=== PATIENT | female | born 1955 | race American Indian/Alaskan Native ===

== ENCOUNTER 2016-09-17 10:25 | Emergency (ER) | payer OTHER ==
[2016-09-17 11:08] VITALS: TEMP 98.2; O2SAT 99
[2016-09-17 11:10] VITALS: BMI 36.6
--- NOTE | 2016-09-17 11:44 | ED PDOC ---
Arrival/HPI - General Chief Complaint: Upper Extremity Problem/Injury Time Seen by Provider: 09/17/16 11:31 Historian: Patient - History of Present Illness Narrative History of Present Illness (Text): 09/17/16 11:41 61 year old female whose past medical history includes hypertension, rheumatoid arthritis, on Tramadol, presents to the emergency department with stiffness on the left side of the neck starting 1 week ago which improved, however progressed to left shoulder pain for the past 3 days. She states it is very painful and stiff and it hurst a lot to move. Denies injury. Patient reports some chest discomfort and difficulty breathing but only when moving the shoulder. No fever, nausea, vomiting, abdominal pain, sore throat, cough, shortness of breath, urinary/bowel changes, back pain, new rashes, headache, vision changes or other associated symptoms. Time/Duration: < week Symptom Onset: Gradual Symptom Course: Worsening Modifying Factors (Text): None Associated Symptoms (Text): Chest discomfort and difficulty breathing when moving left shoulder Past Medical History - Provider Review Nursing Documentation Reviewed: Yes - Cardiac Hx Hypertension: Yes - Pulmonary Hx Asthma: Yes - Gastrointestinal Hx Gastroesophageal Reflux: Yes - Psychiatric Hx Substance Use: No Family/Social History - Physician Review Nursing Documentation Reviewed: Yes Family/Social History: Unknown Family HX Smoking Status: Unknown If Ever Smoked Hx Alcohol Use: No Hx Substance Use: No Allergies/Home Meds Allergies/Adverse Reactions: Allergies Penicillins Allergy (Verified 09/17/16 11:27) ANAPHYLAXIS Review of Systems - Physician Review All systems were reviewed & negative as marked: Yes - Review of Systems Constitutional: absent: Fevers Eyes: absent: Vision Changes ENT: absent: Hearing Changes Respiratory: absent: Cough Gastrointestinal: absent: Abdominal Pain, Stool Changes, Nausea, Vomiting Genitourinary Female: absent: Dysuria, Hematuria, Urine Output Changes Musculoskeletal: Other (Left shoulder pain with associated chest discomfort and difficulty breathing; Left neck stiffness which is improving) Skin: absent: Rash Neurological: absent: Headache Physical Exam Vital Signs Reviewed: Yes Vital Signs Temp Pulse Resp BP Pulse Ox 09/17/16 15:29 70 16 131/61 99 09/17/16 12:06 79 18 145/69 99 09/17/16 11:07 98.2 F 86 18 148/71 99 Temperature: Afebrile Blood Pressure: Normal Pulse: Regular Respiratory Rate: Normal Appearance: Positive for: Well-Appearing, Non-Toxic, Comfortable Pain Distress: None Mental Status: Positive for: Alert and Oriented X 3 - Systems Exam Head: Present: Atraumatic, Normocephalic Pupils: Present: PERRL Conjunctiva: Present: Normal Mouth: Present: Moist Mucous Membranes Pharnyx: Present: Normal. No: ERYTHEMA Respiratory/Chest: Present: Clear to Auscultation, Good Air Exchange. No: Respiratory Distress, Accessory Muscle Use Cardiovascular: Present: Regular Rate and Rhythm, Normal S1, S2. No: Murmurs Abdomen: Present: Normal Bowel Sounds. No: Tenderness, Distention, Peritoneal Signs Upper Extremity: Present: Other (Left shoulder: Tenderness to palpation, mildly swollen, mildly warm. No erythema. Limited active movement of shoulder. Able to passively abduct left shoulder to 50 degrees.) Neurological: Present: GCS=15, CN II-XII Intact, Speech Normal Skin: Present: Warm, Dry, Normal Color. No: Rashes Psychiatric: Present: Alert, Oriented x 3, Normal Insight, Normal Concentration Medical Decision Making ED Course and Treatment: Impression: 61 year old female whose past medical history includes hypertension , rheumatoid arthritis, on Tramadol, presents to the emergency department with stiffness on the left side of the neck starting 1 week ago which improved, however progressed to left shoulder pain for the past 3 days. Differential Diagnosis include but are not limited to: Shoulder sprain vs tendonitis vs bursitis vs gout vs RA exacerbation vs septic joint Plan: -- XR left shoulder, MRI left shoulder, Chest X-ray, EKG -- Toradol -- Labs -- Reassess and disposition Progress Notes: 09/17/16 15:50 MRI Results: FINDINGS: TENDONS: Supraspinatus: In the distal supraspinatus tendon, there is moderate tendinosis and a partial thickness tear, which extends to the articular surface, but not the bursal surface (series 8 image 10). It is 10 mm in length. Infraspinatus: Amorphous calcification superficial to the distal infraspinatus tendon, 9 x 3 x 4 mm, confirms calcific tendinosis. There is no tear. Subscapularis: Mild tendinosis without tear. Teres minor: Normal. Biceps brachii, long head: Normal. LIGAMENTS: Glenohumeral: Normal. Muscles: Normal. Fluid: T2 hyperintensity in the subacromial/subdeltoid bursa is consistent with bursitis secondary to the calcific tendinosis. No glenohumeral joint effusion. Cartilage: Normal. Glenoid labrum: Normal. No tear. Bones/joints: Normal left acromioclavicular joint. Normal left glenohumeral joint. Soft tissues: There is susceptibility artifact in the soft tissues anterior and superior to the distal left clavicle. It may be due to a metal snap in the patient's gown. IMPRESSION: In the distal supraspinatus tendon, there is moderate tendinosis. A partial- thickness tear extends to the articular surface, but not the bursal surface ( series 8 image 10). Infraspinatus calcific tendinosis. Subacromial/subdeltoid bursitis. 09/17/16 16:02 Patient given toradol with mild improvement of pain and morphine with more improvement. Passive ranging is about 90 degress now. Patient's labs show no leukocytosis or neutrophilia. Sed Rate is minimally elevated at 37 (age and gender adjusted normal ESR for patient is 35). MRI of the L shoulder was done showing bursitis and significant tendinosis but no evidence of osteo or findings reflective of septic joint, such as joint effusion, synovial enhancement, bone marrow edema, or cartilage loss; the ac and glenohumeral joints are normal on MRI. Patient has a history of RA but is not on any DMDs or steroids and is not immunosupressed. Given findings, it is highly unlikely that the patient has a septic joint and reports she may follow up with her pmd in two days and told she needs to f/u her display designer outside and orthopedic. Will d /c on medrol dose ghassan, have her continue naprosyn, and give 3 day course of percocet as she has failed tramadol therapy. - Lab Interpretations Lab Results: 09/17/16 11:55 09/17/16 11:55 Lab Results 09/17/16 11:58: Urine Color Yellow, Urine Appearance Sl cloudy, Urine pH 6.0, Ur Specific [place] >= 1.030, Urine Protein 30 H, Urine Glucose (UA) Negative, Urine Ketones Negative, Urine Blood Negative, Urine Nitrate Negative, Urine Bilirubin Small H, Urine Urobilinogen 1.0 H, Ur Leukocyte Esterase Negative, Urine RBC Negative, Urine WBC Negative, Ur Epithelial Cells 3 - 4, Urine Bacteria Small, Urine Other Mucus 09/17/16 11:55: Sodium 136, Chloride 99, Potassium 4.3, Carbon Dioxide 30, Anion Gap 11, BUN 12, Creatinine 0.7, Est GFR ( Amer) > 60, Est GFR (Non- Af Amer) > 60, Random Glucose 94, Uric Acid 4.1, Calcium 9.5, Total Bilirubin 1.0, AST 35, ALT 27, Alkaline Phosphatase 89, Lactate Dehydrogenase 562, Total Creatine Kinase 58, Troponin I < 0.01, NT-Pro-B Natriuret Pep 132, Total Protein 9.0 H, Albumin 4.4, Globulin 4.6, Albumin/Globulin Ratio 1.0 L, Lipase 34 09/17/16 11:55: pO2 34, VBG pH 7.34, VBG pCO2 55.0, VBG HCO3 29.7 H, VBG Total CO2 31.4 H, VBG O2 Sat (Calc) 65.2 H, VBG Base Excess 2.8 H, VBG Potassium 3.8, Sodium 137.0, Chloride 105.0, Glucose 94, Lactate 0.9, FiO2 21.0, Venous Blood Potassium 3.8 09/17/16 11:55: PT 11.5, INR 1.06, APTT 26.4 09/17/16 11:55: WBC 9.1, RBC 4.32, Hgb 11.6 L, Hct 35.3 L, MCV 81.7, MCH 26.9, MCHC 32.9, RDW 14.0, Plt Count 297, MPV 11.1 H, Gran % 66.0, Lymph % (Auto) 23.6 , [place] % (Auto) 9.3 H, Eos % (Auto) 0.8 L, Baso % (Auto) 0.3, Gran # 5.98, Lymph # 2.1, [place] # 0.8 H, Eos # 0.1, Baso # 0.03, ESR 37 H - RAD Interpretation Narrative RAD Interpretations (Text): PROCEDURE: Radiographs of the Left Shoulder Proof Machine Operator Supervisor : Onofre Meredith MD FINDINGS: BONES: No fracture or dislocation. JOINTS: Mild degenerative changes involve the glenohumeral and acromioclavicular joints. SOFT TISSUES: Osseous/calcific density along the lateral aspect of the left humeral head could be from calcific tendinosis. OTHER FINDINGS: None. IMPRESSION: Mild degenerative changes. No fracture or dislocation. MRI can be obtained if symptoms persist. Radiology Orders: 09/17/16 11:39 SHOULDER LEFT [RAD] Stat 09/17/16 11:41 CHEST TWO VIEWS (PA/LAT) [RAD] Stat 09/17/16 11:46 SHOULDER W/O CONTRAST LT [MRI] Stat Fertilizer Mixer: Radiologist - EKG Interpretation EKG Interpretation (Text): 09/17/16 13:42 EKG shows NSR at [address]/t changes, poor r wave progression, borderline left axis deviation Interpreted by ED Physician: Yes Type: 12 lead EKG - Medication Orders Current Medication Orders: Discontinued Medications Ketorolac Tromethamine (Toradol) 30 mg IVP STAT STA Stop: 09/17/16 11:45 Last Admin: 09/17/16 11:52 Dose: 30 mg Morphine Sulfate (Morphine) 4 mg IVP STAT STA Stop: 09/17/16 15:36 Last Admin: 09/17/16 15:43 Dose: 4 mg - Scribe Statement The provider has reviewed the documentation as recorded by the Suzy Junior Provider Scribe Attestation: All medical record entries made by the Suzy were at my direction and personally dictated by me. I have reviewed the chart and agree that the record accurately reflects my personal performance of the history, physical exam, medical decision making, and the department course for this patient. I have also personally directed, reviewed, and agree with the discharge instructions and disposition. Disposition/Present on Arrival - Present on Arrival Any Indicators Present on Arrival: No History of DVT/PE: No History of Uncontrolled Diabetes: No Urinary Catheter: No History of Decub. Ulcer: No History Surgical Site Infection Following: None - Disposition Have Diagnosis and Disposition been Completed?: Yes Diagnosis: Subacromial bursitis of left shoulder joint, Supraspinatus tendinitis, Infraspinatus tendonitis, Supraspinatus tendon tear Disposition: HOME/ ROUTINE Disposition Time: 16:55 Patient Plan: Discharge Condition: GOOD Discharge Instructions (ExitCare): Rotator Cuff Tendinitis (ED), Shoulder Bursitis (ED) Additional Instructions: Take the medications as prescribed. Stop using tramadol while taking percocet. Follow up with your primary care doctor, display designer outside, and orthopedics. Return to the emergency department if any new concerning symptoms. Prescriptions: Methylprednisolone [Medrol Dose Pack (21 tabs)] 4 mg PO DAILY #21 mg Naproxen [Naprosyn] 500 mg PO BID PRN #30 tab PRN Reason: Pain oxyCODONE/Acetaminophen [Percocet 5/325 mg Tab] 1 tab PO Q6H PRN #12 tab PRN Reason: Pain, Severe (8-10) Referrals: Aron Niño MD [Primary Care Provider] - Follow up with primary [facility] [Outside] - Follow up with primary [facility] [Outside] - Follow up with primary Dewayne He MD [Staff Provider] - Follow up with primary
[2016-09-17 12:04] LABS: URINE BILIRUBIN SMALL (NEGATIVE); URINE BLOOD NEGATIVE (NEGATIVE); URINE GLUCOSE (UA) NEGATIVE (NEGATIVE); URINE KETONE NEGATIVE (NEGATIVE); URINE LEUKOCYTE ESTERASE NEGATIVE Leu/uL (NEGATIVE); URINE PROTEIN 30 mg/dL (<30 mg/dL)
[2016-09-17 12:08] LABS: URINE APPEARANCE SL CLOUDY (CLEAR); URINE COLOR YELLOW (YELLOW)
[2016-09-17 12:09] LABS: URINE BACTERIA SMALL (NEG); URINE RBC NEGATIVE /hpf (0-2); URINE WBC NEGATIVE /hpf (0-6)
[2016-09-17 12:27] LABS: ADD MANUAL DIFF? NO
[2016-09-17 12:32] LABS: VENOUS BLOOD GAS BASE EXCESS 2.8 mmol/L (0.0-2.0); VENOUS BLOOD PH 7.34 (7.32-7.43)
[2016-09-17 12:35] LABS: BASO # 0.03 K/mm3 (0.0-2.0); BASO % 0.3 % (0.0-3.0); EOS # 0.1 (0.0-0.7); EOS % 0.8 % (1.5-5.0); GRAN # 5.98 (1.4-6.5); HEMATOCRIT 35.3 % (36.0-48.0); LYMPH # 2.1 (1.2-3.4); LYMPH % 23.6 % (22.0-35.0); MEAN CELL VOLUME 81.7 fL (80.0-105.0); MEAN CORPUSCULAR HEMOGLOBIN 26.9 pg (25.0-35.0); MEAN CORPUSCULAR HGB CONC 32.9 g/dl (31.0-37.0); MEAN PLATELET VOLUME 11.1 fl (7.0-11.0); MONO # 0.8 (0.1-0.6); MONO % 9.3 % (1.0-6.0); PLATELET COUNT 297 10^3/uL (120.0-450.0); WHITE BLOOD COUNT 9.1 10^3/ul (4.5-11.0)
[2016-09-17 12:40] LABS: ALKALINE PHOSPHATASE 89 U/L (38-133); ALT/SGPT 27 U/L (7-56); AST/SGOT 35 U/L (15-39); BLOOD UREA NITROGEN 12 mg/dL (7-21); CALCIUM 9.5 mg/dL (8.4-10.5); CARBON DIOXIDE 30 mmol/L (21-33); CHLORIDE 99 mmol/L (98-107); GFR AFRICAN-AMERICAN > 60; GLUCOSE,RANDOM 94 mg/dL (70-110); LIPASE 34 U/L (23-300); POTASSIUM 4.3 mmol/L (3.6-5.0); SODIUM 136 mmol/L (132-148); URIC ACID 4.1 mg/dL (2.5-6.2)
[2016-09-17 12:41] LABS: INR 1.06 (0.93-1.08); PARTIAL THROMBOPLASTIN TIME 26.4 Seconds (23.7-30.8)
[2016-09-17 12:53] LABS: TROPONIN I < 0.01 ng/mL
--- NOTE | 2016-09-17 13:09 | RAD ---
PROCEDURE: Radiographs of the Left Shoulder HISTORY: L shoulder pain COMPARISON: No prior. FINDINGS: BONES: No fracture or dislocation. JOINTS: Mild degenerative changes involve the glenohumeral and acromioclavicular joints. SOFT TISSUES: Osseous/calcific density along the lateral aspect of the left humeral head could be from calcific tendinosis. OTHER FINDINGS: None. IMPRESSION: Mild degenerative changes. No fracture or dislocation. MRI can be obtained if symptoms persist.
--- NOTE | 2016-09-17 13:13 | RAD ---
HISTORY: L chest pain, shoulder pain COMPARISON: No prior. TECHNIQUE: Chest PA and lateral FINDINGS: LUNGS: No active pulmonary disease. PLEURA: No significant pleural effusion identified. No pneumothorax apparent.Biapical pleural parenchymal thickening noted. CARDIOVASCULAR: Normal. OSSEOUS STRUCTURES: No significant abnormalities. VISUALIZED UPPER ABDOMEN: Normal. OTHER FINDINGS: None. IMPRESSION: No active disease. Followup imaging should be obtained as per clinical scenario.
[2016-09-17 13:40] LABS: ERYTHROCYTE SEDIMENTATION RATE 37 mm/hr (0.0-20.0)
[2016-09-17 15:30] VITALS: RESP 16
[2016-09-17] MEDS ORDERED: Morphine 4 mg/ml ISec IVP STA (15:35)
[2016-09-17 17:02] VITALS: BP 132/65; PULSE 69
--- NOTE | 2016-09-18 10:23 | CARD ---
APPROVED REPORT EKG Measurement Heart [id number] <Conclusion> Normal sinus rhythm PRWP V 1 - 6, possible lead positioning
--- NOTE | 2016-09-18 13:29 | MRI ---
MRI left shoulder History: Shoulder pain. Evaluate for effusion and or septic joint. Comparison: None available. Technique: Multi-echo multiplanar sequences were performed through the left shoulder without the use of intravenous contrast. Findings: Complete full-thickness tear of the distal supraspinatus tendon at its far anterior insertion on the greater tuberosity with tendon retraction measuring 4 millimeters. Associated moderate tendinopathy. Mild fatty atrophy of the muscle belly. Prominent calcific tendinopathy of the distal infraspinatus tendon with ovoid low signal density measuring 9 millimeters seen at the distal attachment of the infraspinatus tendon. Associated moderate to severe tendinopathy with interstitial delamination. No gross tendon retraction or muscle atrophy. Teres minor tendon is preserved. Moderate distal subscapularis tendinopathy with articular surface fraying and interstitial delamination. No gross tendon retraction or muscle atrophy. Proximal portion of the long head of the biceps tendon is maintained within its normal position in the bicipital groove. Evaluation of the glenoid labrum demonstrates degenerative fraying of the superior labrum extending from its mid to posterior aspect. Additional diminutive appearance of the anterior glenoid labrum. Thickened inferior glenohumeral ligament which may represent an underlying adhesive capsulitis. Few focal subchondral cysts within the proximal humerus; for example, measuring up to 2 millimeters. No significant glenohumeral joint effusion. Moderate amount of fluid within the subacromial and subdeltoid bursa. Increased STIR signal seen within the distal clavicle which may represent failure of fat suppression. Moderate acromioclavicular joint space degenerative changes with joint space narrowing, subchondral edema, and bony hypertrophy. If there is persistent concern for septic arthritis, correlation with joint aspiration and culture sample/biopsy may be helpful. Impression: 1. Complete full-thickness tear of the distal supraspinatus tendon at its far anterior insertion on the greater tuberosity with tendon retraction measuring 4 millimeters. Associated moderate tendinopathy. Mild fatty atrophy of the muscle belly. 2. Prominent calcific tendinopathy of the distal infraspinatus tendon with ovoid low signal density measuring 9 millimeters seen at the distal attachment of the infraspinatus tendon. Associated moderate to severe tendinopathy with interstitial delamination. No gross tendon retraction or muscle atrophy. 3. Moderate distal subscapularis tendinopathy with articular surface fraying and interstitial delamination. No gross tendon retraction or muscle atrophy. 4. Evaluation of the glenoid labrum demonstrates degenerative fraying of the superior labrum extending from its mid to posterior aspect. Additional diminutive appearance of the anterior glenoid labrum. 5. Thickened inferior glenohumeral ligament which may represent an underlying adhesive capsulitis. 6. Few focal subchondral cysts within the proximal humerus; for example, measuring up to 2 millimeters. 7. Moderate amount of fluid within the subacromial and subdeltoid bursa. 8. Increased STIR signal seen within the distal clavicle which may represent failure of fat suppression. 9. Moderate acromioclavicular joint space degenerative changes with joint space narrowing, subchondral edema, and bony hypertrophy. 10. If there is persistent concern for septic arthritis, correlation with joint aspiration and culture sample/biopsy may be helpful.
== END 2016-09-17 17:19 | disposition home or self-care (01) ==
LOC: ED 10:25
DX: M75.52 Bursitis of left shoulder (principal); S46.812A Strain of other muscles, fascia and tendons at shoulder and upper arm level, left arm, initial encounter; X58.XXXA Exposure to other specified factors, initial encounter; I10 Essential (primary) hypertension; M06.9 Rheumatoid arthritis, unspecified
CPT/HCPCS: 71020; 73030; 73221; 80053; 81001; 82550; 82803; 83615; 83690; 83880; 84484; 84550; 85025; 85610; 85651; 85730; 86140; 93005; 96374; 96375; 99285; J1885; J2270; J2930

== ENCOUNTER 2017-03-22 05:43 | Inpatient (IN) | payer OTHER ==
[2017-03-22] MEDS ORDERED: Eptifibatide 0.75 mg/ml 150 MG/200 ML BOTTLE IV ONE (05:51)
[2017-03-22] MEDS ORDERED: Metoprolol 1 mg/ml Inj IVP ONE ×2 (05:51→07:13)
[2017-03-22] MEDS ORDERED: Eptifibatide 20 mg/10mL Inj IVP ONE ×2 (05:51→06:00)
[2017-03-22] MEDS ORDERED: Heparin 25,000units in D5W 25,000 UNITS/250 ML BAG IV ONE (05:52)
[2017-03-22] MEDS ORDERED: Nitroglycerin 50mg in D5W 50 MG/250 ML BOTTLE IV PRN (05:54)
--- NOTE | 2017-03-22 05:54 | ED PDOC ---
Arrival/HPI - General Time Seen by Provider: 03/22/17 05:47 Historian: Patient, EMS - History of Present Illness Narrative History of Present Illness (Text): 03/22/17 05:53 A 61 year old female, whose past medical history includes rheumatoid arthritis and hypertension, was brought in by Paramedics to the emergency department for onset of chest pain that developed around midnight. Patient denies any shortness of breath. Patient's family summoned ambulance when patient's pain persisted and increased in severity.Rhythm strip showed possible acute inferior wall injury. Patient was administered Aspirin prior to arrival to the emergency department. Patient is currently still with chest pain. PMD: Dr. Niño Time/Duration: 4-6 hours Symptom Onset: Sudden Symptom Course: Unchanged Activities at Onset: Rest Context: Home Past Medical History - Provider Review Nursing Documentation Reviewed: Yes - Cardiac Hx Hypertension: Yes - Pulmonary Hx Asthma: Yes - Gastrointestinal Hx Gastroesophageal Reflux: Yes - Psychiatric Hx Substance Use: No Family/Social History - Physician Review Nursing Documentation Reviewed: Yes Family/Social History: No Known Family HX Smoking Status: Unknown If Ever Smoked Hx Alcohol Use: No Hx Substance Use: No Allergies/Home Meds Allergies/Adverse Reactions: Allergies Penicillins Allergy (Verified 03/22/17 05:56) ANAPHYLAXIS Home Medications: Home Meds Medication Instructions Recorded Confirmed Loratadine [Claritin] 10 mg PO PRN PRN 03/22/17 03/22/17 traMADol [Ultram] 50 mg PO TID 03/22/17 03/22/17 Review of Systems - Physician Review All systems were reviewed & negative as marked: Yes - Review of Systems Respiratory: absent: SOB Cardiovascular: Chest Pain Physical Exam Vital Signs Reviewed: Yes Vital Signs Temp Pulse Resp BP Pulse Ox 03/22/17 06:07 61 18 120/62 98 03/22/17 06:01 65 144/65 03/22/17 05:49 98.7 F 66 18 143/74 100 Temperature: Afebrile Blood Pressure: Normal Pulse: Regular Respiratory Rate: Normal Mental Status: Positive for: Alert and Oriented X 3 - Systems Exam Head: Present: Atraumatic, Normocephalic Pupils: Present: PERRL Extroacular Muscles: Present: EOMI Conjunctiva: Present: Normal Mouth: Present: Moist Mucous Membranes Neck: Present: Normal Range of Motion Respiratory/Chest: Present: Clear to Auscultation, Good Air Exchange. No: Respiratory Distress, Accessory Muscle Use Cardiovascular: Present: Regular Rate and Rhythm, Normal S1, S2. No: Murmurs Abdomen: Present: Normal Bowel Sounds. No: Tenderness, Distention, Peritoneal Signs Back: Present: Normal Inspection Upper Extremity: Present: Normal Inspection. No: Cyanosis, Edema Lower Extremity: Present: Normal Inspection. No: Edema Neurological: Present: GCS=15, CN II-XII Intact, Speech Normal Skin: Present: Warm, Dry, Normal Color. No: Rashes Psychiatric: Present: Alert, Oriented x 3, Normal Insight, Normal Concentration Medical Decision Making ED Course and Treatment: 03/22/17 05:52 Impression: A 61 year old female with chest pain. Plan: -- EKG -- chest xray -- labs -- Heparin, Plavix, Nitroglycerin, Morphine -- Reassess and disposition Prior Visits: Notes and results from previous visits were reviewed. Patient was last seen in the emergency department on 09/17/16 for evaluation of left sided neck stiffness and left shoulder pain. Progress Notes: 03/22/17 05:48 Code heart called. 03/22/17 05:49 EKG: Ordered, reviewed, and independently interpreted the EKG. Rate : 65 BPM Rhythm : NSR Interpretation : acute infero-lateral injury with reciprocal changes anteriorly 03/22/17 05:[address] Schilling, Plastics Repairer.Medical management discussed in full.Pt. prepped for cardiac catheterization. 03/22/17 06:08 Chest xray: No acute process, as read by me. 03/22/17 06:20 Case was discussed with the medical psychotherapist/house physician/ and delivery man.Pt. to be admitted to the hospitalist service. in ED to evaluate pt.to be transported to laboratory geneticist. - Lab Interpretations Lab Results: 03/22/17 05:50 03/22/17 05:50 Lab Results 03/22/17 05:50: PT 11.5, INR 1.04, APTT 26.9 03/22/17 05:50: WBC 10.4, RBC 4.54, Hgb 12.0, Hct 37.1, MCV 81.7, MCH 26.4, MCHC 32.3, RDW 14.4, Plt Count 285, MPV 10.6 03/22/17 05:50: Sodium 141, Potassium 4.0, Chloride 100, Carbon Dioxide 30, Anion Gap 15, BUN 24 H, Creatinine 0.8, Est GFR ( Amer) > 60, Est GFR ( Non-Af Amer) > 60, Random Glucose 136 H, Calcium 10.3, Total Bilirubin 0.6, AST 34, ALT 29, Alkaline Phosphatase 96, Lactate Dehydrogenase 417, Total Creatine Kinase 62, Troponin I 0.23 H* D, Total Protein 9.2 H, Albumin 4.6, Globulin 4.5 , Albumin/Globulin Ratio 1.0 L, Triglycerides 108, Cholesterol 266 H, LDL Cholesterol Direct 164 H, HDL Cholesterol 49 - RAD Interpretation Radiology Orders: 03/22/17 05:53 CHEST PORTABLE [RAD] Stat - EKG Interpretation Interpreted by ED Physician: Yes Type: 12 lead EKG - Medication Orders Current Medication Orders: Nitroglycerin/Dextrose (Nitroglycerin 50 Mg/250 Ml D5w) 50 mg in 250 mls @ 3 mls/hr IV .Q24H PRN; Protocol; 10 MCG/MIN PRN Reason: Pain, severe (8-10) Last Admin: 03/22/17 06:01 Dose: 3 mls/hr eMAR Start Stop Document 03/22/17 06:01 BOB (Rec: 03/22/17 06:25 BOB [id number]) Intravenous Solution Start Date 03/22/17 Start Time 06:01 JUL Pulse and Blood Pressure Document 03/22/17 06:01 BOB (Rec: 03/22/17 06:25 BOB [id number]) Pulse Pulse Rate (60-90) 65 Blood Pressure Blood Pressure (100/60-150/90) 144/65 Discontinued Medications Clopidogrel Bisulfate (Plavix) 600 mg PO STAT STA Stop: 03/22/17 05:55 Last Admin: 03/22/17 05:55 Dose: 600 mg Eptifibatide (Integrilin Bolus) 17 mg IVP STAT STA Stop: 03/22/17 06:06 Heparin Sodium (Porcine) (Heparin) 5,000 units IVP STAT STA PRN Reason: Protocol Stop: 03/22/17 05:55 Last Admin: 03/22/17 05:55 Dose: 5,000 units IVP Administration Document 03/22/17 05:55 BOB (Rec: 03/22/17 06:26 BOB [id number]) Charges for Administration # of IVP Administrations 1 Morphine Sulfate (Morphine) 2 mg IVP STAT STA Stop: 03/22/17 06:09 Last Admin: 03/22/17 06:13 Dose: 2 mg MAR Pain Assessment Document 03/22/17 06:13 BOB (Rec: 03/22/17 06:18 BOB [id number]) Pain Reassessment Is this a pain reassessment? No IVP Administration Document 03/22/17 06:13 BOB (Rec: 03/22/17 06:18 BOB [id number]) Charges for Administration # of IVP Administrations 1 - Scribe Statement The provider has reviewed the documentation as recorded by the Yanethibrustam Malloy Provider Scribe Attestation: All medical record entries made by the Scribe were at my direction and personally dictated by me. I have reviewed the chart and agree that the record accurately reflects my personal performance of the history, physical exam, medical decision making, and the department course for this patient. I have also personally directed, reviewed, and agree with the discharge instructions and disposition. Disposition/Present on Arrival - Present on Arrival Any Indicators Present on Arrival: No History of DVT/PE: No History of Uncontrolled Diabetes: No Urinary Catheter: No History of Decub. Ulcer: No History Surgical Site Infection Following: None - Disposition Have Diagnosis and Disposition been Completed?: Yes Diagnosis: STEMI (ST elevation myocardial infarction) Disposition: HOSPITALIZED Disposition Time: 06:23 Patient Plan: Admission Patient Problems: Current Active Problems Problem Status Onset STEMI (ST elevation myocardial infarction) Acute Condition: GUARDED
[2017-03-22] MEDS: Nitroglycerin 50mg in D5W 50 MG/250 ML BOTTLE IV ONE ×2 (06:01→06:27)
[2017-03-22] MEDS: Eptifibatide 20 mg/10mL Inj IVP STA ×2 (06:05→06:10)
[2017-03-22 06:07] LABS: HEMATOCRIT 37.1 % (36.0-48.0); MEAN CELL VOLUME 81.7 fl (80.0-105.0); MEAN CORPUSCULAR HEMOGLOBIN 26.4 pg (25.0-35.0); MEAN CORPUSCULAR HGB CONC 32.3 g/dl (31.0-37.0); MEAN PLATELET VOLUME 10.6 fl (7.0-11.0); RED CELL DISTRIBUTION WIDTH 14.4 % (11.5-14.5); WHITE BLOOD COUNT 10.4 10^3/ul (4.5-11.0)
[2017-03-22] MEDS ORDERED: Morphine 2 mg/ml ISec IVP STA (06:08)
[2017-03-22] MEDS ORDERED: Morphine 2 mg/ml ISec ONE (06:12)
[2017-03-22 06:15] LABS: ALKALINE PHOSPHATASE 96 U/L (38-126); ALT/SGPT 29 U/L (7-56); AST/SGOT 34 U/L (14-36); BILIRUBIN,TOTAL 0.6 mg/dL (0.2-1.3); BLOOD UREA NITROGEN 24 mg/dL (7-21); CALCIUM 10.3 mg/dL (8.4-10.5); CARBON DIOXIDE 30 mmol/L (21-33); CHLORIDE 100 mmol/L (98-107); CHOLESTEROL 266 mg/dL (130-200); GFR AFRICAN-AMERICAN > 60; GLUCOSE,RANDOM 136 mg/dL (70-110); SODIUM 141 mmol/L (132-148); TOTAL PROTEIN 9.2 g/dL (5.8-8.3)
[2017-03-22 06:18] LABS: INR 1.04 (0.93-1.08); PARTIAL THROMBOPLASTIN TIME 26.9 Seconds (25.1-36.5)
[2017-03-22] MEDS ORDERED: Midazolam 2 MG/2 ML VIAL ONE (06:27)
[2017-03-22] MEDS ORDERED: Iodixanol 320 MG/ML 200 ML BOTTLE IV ONE (06:32)
[2017-03-22] MEDS ORDERED: Iohexol 350mgl/ml 50 ML ONE (06:32)
[2017-03-22] MEDS ORDERED: Iodixanol 320 mg/ml 150 ml Bottle IV ONE (06:32)
[2017-03-22] MEDS ORDERED: Lidocaine 2% Inj (20ml) ONE (06:34)
--- NOTE | 2017-03-22 06:39 | CP.PCM.PN ---
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 Objective - Vital Signs/Intake and Output Vital Signs (last 24 hours): Temp Pulse Resp BP Pulse Ox 98.7 F 61 18 120/62 98 03/22/17 05:49 03/22/17 06:07 03/22/17 06:07 03/22/17 06:07 03/22/17 06:07 - Medications Medications: Current Medications Nitroglycerin/Dextrose (Nitroglycerin 50 Mg/250 Ml D5w) 50 mg in 250 mls @ 3 mls/hr IV .Q24H PRN; Protocol; 10 MCG/MIN PRN Reason: Pain, severe (8-10) Last Admin: 03/22/17 06:01 Dose: 3 mls/hr - Labs Labs: 03/22/17 05:50 03/22/17 05:50 PT 11.5 SECONDS (9.4-12.5) 03/22/17 05:50 INR 1.04 (0.93-1.08) 03/22/17 05:50 APTT 26.9 Seconds (25.1-36.5) 03/22/17 05:50
[2017-03-22 06:40] LABS: TROPONIN I 0.23 ng/mL
[2017-03-22] MEDS ORDERED: Phenylephrine 10 mg/ml Inj ONE (06:55)
[2017-03-22] MEDS ORDERED: Sodium Chloride 0.9% 1,000 ML IV SCH (07:30)
[2017-03-22] MEDS ORDERED: Eptifibatide 0.75 mg/ml 100 ML IV SCH (07:30)
[2017-03-22] MEDS: Eptifibatide 0.75 mg/ml 75 MG/100 ML BOTTLE IV SCH ×3 (07:35→20:35)
--- NOTE | 2017-03-22 07:53 | CARD ---
APPROVED REPORT Procedure(s) performed: Left Heart Catheterization aspiration of blood clot By Pronto PTCA with Stenting of Mid RCA with IMELDA HISTORY : The patient is a current smoker , hypertension . INDICATION The indication(s) include : chest pain, STEMI (>0 to less than or equal to 6 hours), dyspnea, Acute Inferior wall KS. CASE TECHNIQUE The patient was brought emergently to the Cardiac Catheterization Laboratory in a fasting state and was prepped and draped in a sterile manner. The left wrist was infiltrated with 2% Lidocaine subcutaneous anesthesia. A 6FR GL[employer] sheath was inserted into the left radial artery without difficulty. Coronary angiography was performed using coronary diagnostic catheters. The left coronary system was accessed and visualized with a Diagnostic ,5 Fr JL 3.5 catheter. The right coronary system was accessed and visualized with a Diagnostic ,5 Fr JR 4 catheter. The left ventricle was accessed and visualized with a 5 Fr Pigtail 145 (Angled) catheter. Left ventricular/Aortic Valve gradient assessed on pullback. Left ventriculogram was performed in WALL projection. Closure device was deployed with a Fr TR Band (Regular) without any complications. The patient tolerated the procedure well and there were no complications associated with the procedure. Vessel Analysis The patient's coronary anatomy is right dominant. The left main coronary artery is a medium size vessel without significant stenosis. The left main bifurcates to the left anterior descending and circumflex. The left anterior descending artery is a medium size vessel with intimal irregularities and without significant stenosis. Disatal diffusely disease The first diagonal branch is a large size vessel with intimal irregularities and without significant stenosis. The circumflex artery is a medium size vessel with intimal irregularities and without significant stenosis. The right coronary artery is a large size vessel with diffuse calcification noted throughout this vessel and with significant stenosis. There is a 90% stenosis in the mid segment. with Hazyness The right posterior descending artery is a large size vessel with intimal irregularities and without significant stenosis. The right posterolateral branch is a large size vessel with intimal irregularities and without significant stenosis. Left Ventricle The left ventricle is Borderline in size with mildly decreased contractility. Ischemic cardiomyopathy. The left ventricular ejection fraction is estimated to be 35%. The left ventricular end diastolic pressure is 35 mmHg. There was no gradient across the aortic valve upon pullback. PCI Technique Lesion Anticoagulation was achieved with Heparin. Percutaneous coronary intervention was performed on the mid right coronary artery. The lesion stenosis prior to intervention was 90% with RITU 2 flow. A 6 Fr JR 3.5 Guide Catheter was used to engage the RCA ostium. A 0.014 x 182 cm Luge Interventional Guidewire was used to cross the lesion. BALLOON DILATION A Balloon catheter 2.5 x 10 mm Sprinter RX was inserted and inflated up to 10.00atm for 9seconds. After Suction Catheter, Pronto STENT DEPLOYMENT A drug-eluting stent 4.0 x 15 mm Resolute IMELDA was inserted and inflated up to 12.00atm for 20seconds. POST STENT DEPLOYMENT BALLOON DILATION A Balloon catheter 4.0 x 12 mm Sprinter NC was inserted and inflated up to 16.00atm for 20seconds. Final angiography reveals 0 % stenosis with RITU 3 flow. Conclusion Single vessel CAD, involving Mid RCA with Hazyness, culprit for this acute KS. Successful PTCA with IMELDA after Suction catheter Pronto used. Mildly decreased Lv Fx, Ef-35%, EDP-35 Recommendations Smoking Cessation Cardiac Rehabilitation ReferralDaily ASA with Plavix for at least one year Aggressive Medical TherapyCardiac Risk Reduction Program Weight Loss Reduction Program Atovastatin, Diuretic, AMRITA, Beta mina Integrelin for !8 hours. Echo to Assess Lv FX. Cc; Dr. Aron Niño.
[2017-03-22 09:21] LABS: GRAN % 79.5 % (50.0-68.0); HEMATOCRIT 36.8 % (36.0-48.0); MEAN CORPUSCULAR HEMOGLOBIN 26.3 pg (25.0-35.0); MEAN CORPUSCULAR HGB CONC 32.1 g/dl (31.0-37.0); MEAN PLATELET VOLUME 11.2 fl (7.0-11.0); RED CELL DISTRIBUTION WIDTH 14.4 % (11.5-14.5)
[2017-03-22 09:22] LABS: BASO # 0.02 K/mm3 (0.0-2.0); BASO % 0.2 % (0.0-3.0); EOS % 0.1 % (1.5-5.0); GRAN # 7.98 (1.4-6.5); LYMPH # 1.7 (1.2-3.4); LYMPH % 17.2 % (22.0-35.0); MONO # 0.3 (0.1-0.6)
[2017-03-22] MEDS ORDERED: Benzocaine/Menthol (Cepacol) Lozenge MT PRN (09:49)
[2017-03-22] MEDS ORDERED: Potassium Chloride 20 mEq ER Tab PO ONE (10:00)
--- NOTE | 2017-03-22 10:30 | RAD ---
HISTORY: pain COMPARISON: 09/17/2016 FINDINGS: LUNGS: Current study slightly less exposed on the prior. The relative prominence of the overall bronchovascular markings are increased-screw well be due to slight differences in this technique as well as the current lower lung volumes/ smaller inspiration urge status suggested. No consolidation PLEURA: No significant pleural effusion identified, no pneumothorax apparent. CARDIOVASCULAR: Borderline cardiomegaly OSSEOUS STRUCTURES: No significant abnormalities. VISUALIZED UPPER ABDOMEN: Normal. OTHER FINDINGS: None. IMPRESSION: No active disease.
[2017-03-22 10:41] VITALS: BMI 36.3
[2017-03-22 10:53] LABS: BLOOD UREA NITROGEN 22 mg/dL (7-21); CALCIUM 9.5 mg/dL (8.4-10.5); CARBON DIOXIDE 30 mmol/L (21-33); CHLORIDE 100 mmol/L (98-107); GFR AFRICAN-AMERICAN > 60; GLUCOSE,RANDOM 142 mg/dL (70-110)
[2017-03-22 11:24] LABS: POTASSIUM 4.6 mmol/L (3.6-5.0); SODIUM 139 mmol/L (132-148)
--- NOTE | 2017-03-22 11:29 | CON ---
DATE: 03/22/2017 PRIMARY CARE DOCTOR: Dr. Beatty REASON FOR CONSULTATION: Code STEMI, inferior wall AZ. BRIEF CLINICAL HISTORY: This is a 61-year-old female with past medical history significant for active tobacco abuse and hypertension, who came in with a complaint of chest pain off and on since Monday. The patient got better again with the chest pain. Last night, the patient got chest pain, which got better. 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 The patient came to the emergency room around to , found to be with inferior wall AZ, ST elevation in II, III, aVF. Code STEMI was activated. Risks, benefits, and alternatives were discussed with the patient. The patient was agreeable to proceed for cardiac catheterization. PAST MEDICAL HISTORY: Significant for hypertension, on losartan. SOCIAL HISTORY: Active tobacco abuse, a pack a day. Denies any history of alcohol abuse. FAMILY HISTORY: Significant for diabetes. No history of coronary artery disease. CURRENT MEDICATIONS: The patient is taking losartan 50 mg daily. PHYSICAL EXAMINATION VITAL SIGNS: As follows: Temperature afebrile, heart rate 80 and blood pressure 130/80. HEENT: PERRLA. Extraocular muscles intact. NECK: Supple. No carotid bruits or thyromegaly. CHEST: Clear to auscultation. HEART: S1 and S2 regular. ABDOMEN: Soft. EXTREMITIES: Clubbing and cyanosis negative. LABORATORY DATA: EKG shows inferior wall AZ, ST elevation in II, III, and aVF with reciprocal ST depression. Blood work is pending. IMPRESSION: Acute ST segment elevation myocardial infarction. RECOMMENDATIONS: Discussed with the patient. The patient has agreed. We will give 5000 heparin bolus, two Integrilin bolus and followed by the drip. Aspirin 325 mg and 600 mg of Plavix given. Discussed with the daughter, the patient agreed and we will proceed for cardiac catheterization. Risks, benefits, and alternatives were discussed with the patient. Thank you Dr. Beatty for providing us the opportunity in taking care of the patient, Jenn Ty. Marco A Schilling MD cc: Della Beatty MD
[2017-03-22] MEDS: Insulin Reg-LOW-Coverage SC SCH ×2 (11:45→16:58)
--- NOTE | 2017-03-22 13:29 | CP.PCM.CON ---
<Lasha Dinero - Last Filed: 03/22/17 13:38> History of Present Illness - History of Present Illness History of Present Illness: Lasha Dinero D.O. PGY-2, Critical Care Consultation note 61 year old female with a PMH of rheumatoid arthritis and hypertension on losartan who presented to [facility] earlier today 03/22/17 via ambulance for acute onset chest pain around midnight. Pain persisted and so they called for an ambulance. In the ER patient was found to have an inferior wall STEMI and a code HEART was called. Patient was taken emergently to the cardiac cath lab radiology technologist and had PTCA with IMELDA of mid RCA. Patient was seen and examined at bedside after procedure and is doing well at this time. Patient denies any CP/SOB/N/V/C/D/FLEMING or other symptoms. Patient relates how she was sick since Monday with some runny nose, sneezing, coughing, and was resting the weekend, but then last night developed pain first in the tongue, then month, then chest that was severe. Review of Systems - Constitutional Constitutional: absent: Anorexia, Chills - EENT Eyes: absent: Blind Spots, Blurred Vision Ears: absent: Decreased Hearing, Ear Discharge Nose/Mouth/Throat: absent: Epistaxis, Nasal Congestion - Cardiovascular Cardiovascular: absent: Chest Pain, Dyspnea - Respiratory Respiratory: absent: Cough, Dyspnea - Gastrointestinal Gastrointestinal: absent: Abdominal Pain, Nausea, Vomiting - Musculoskeletal Musculoskeletal: Arthralgias. absent: Numbness, Tingling - Integumentary Integumentary: absent: Pruritus, Rash - Neurological Neurological: absent: Dizziness, Numbness Past Patient History - Past Social History Smoking Status: Light Smoker < 10 Cigarettes Daily - CARDIAC Hx Hypertension: Yes - PULMONARY Hx Asthma: Yes - NEUROLOGICAL Hx Neurological Disorder: No - HEENT Hx HEENT Problems: No - RENAL Hx Chronic Kidney Disease: No - ENDOCRINE/METABOLIC Hx Endocrine Disorders: No - HEMATOLOGICAL/ONCOLOGICAL Hx Blood Disorders: No - INTEGUMENTARY Hx Dermatological Problems: No - MUSCULOSKELETAL/RHEUMATOLOGICAL Hx Falls: No - GASTROINTESTINAL Hx Gastroesophageal Reflux: Yes - GENITOURINARY/GYNECOLOGICAL Hx Genitourinary Disorders: No - PSYCHIATRIC Hx Substance Use: No - SURGICAL HISTORY Hx Surgeries: Yes Hx Dilation and Curettage: Yes Meds Allergies/Adverse Reactions: Allergies Allergy/AdvReac Type Severity Reaction Status Date / Time Penicillins Allergy ANAPHYLAXIS Verified 03/22/17 05:56 - Medications Medications: Current Medications Acetaminophen (Tylenol 325mg Tab) 650 mg PO Q4H PRN PRN Reason: for pain Last Admin: 03/22/17 12:51 Dose: 650 mg Alprazolam (Xanax) 0.25 mg PO BID PRN PRN Reason: Anxiety Stop: 03/29/17 07:26 Last Admin: 03/22/17 12:51 Dose: 0.25 mg Aspirin (Ecotrin) 81 mg PO DAILY [facility] Atorvastatin Calcium (Lipitor) 80 mg PO DIN [facility] Benzocaine/Menthol (Cepacol Sore Throat) 1 enrique MT Q2H PRN PRN Reason: Sore Throat Clopidogrel Bisulfate (Plavix) 75 mg PO DAILY [facility] Docusate Sodium (Colace) 100 mg PO BID [facility] Furosemide (Lasix) 40 mg IV ONCE ONE Stop: 03/22/17 15:01 Furosemide (Lasix) 40 mg PO DAILY [facility] Hydralazine HCl (Apresoline) 10 mg PO QID PRN PRN Reason: for SBP>170 Nitroglycerin/Dextrose (Nitroglycerin 50 Mg/250 Ml D5w) 50 mg in 250 mls @ 3 mls/hr IV .Q24H PRN; Protocol; 10 MCG/MIN PRN Reason: Pain, severe (8-10) Last Admin: 03/22/17 06:01 Dose: 3 mls/hr Sodium Chloride (Sodium Chloride 0.9%) 1,000 mls @ 50 mls/hr IV .Q20H TATA Stop: 03/22/17 23:59 Eptifibatide (Integrilin) 75 mg in 100 mls @ 14.508 mls/hr IV .Q6H54M TATA; 2 MCG/KG/MIN PRN Reason: Protocol Insulin Human Regular (Humulin R Low) 0 units SC ACHS TATA PRN Reason: Protocol Lisinopril (Zestril) 20 mg PO DAILY [facility] Last Admin: 03/22/17 11:15 Dose: 20 mg Metoprolol Tartrate (Lopressor) 25 mg PO BID [facility] Last Admin: 03/22/17 11:16 Dose: 25 mg Ondansetron HCl (Zofran Inj) 4 mg IV Q6H PRN PRN Reason: Nausea/Vomiting Zolpidem Tartrate (Ambien) 5 mg PO HS PRN PRN Reason: Insomnia Physical Exam - Constitutional Appears: Well, Non-toxic - Head Exam Head Exam: ATRAUMATIC, NORMOCEPHALIC - Eye Exam Eye Exam: EOMI, PERRL. absent: Scleral icterus - ENT Exam ENT Exam: Mucous Membranes Moist, Normal Oropharynx - Neck Exam Neck exam: Positive for: Normal Inspection. Negative for: Tenderness - Respiratory Exam Respiratory Exam: Clear to Auscultation Bilateral. absent: Rales, Rhonchi, Wheezes - Cardiovascular Exam Cardiovascular Exam: RRR, +S1, +S2. absent: Gallop, Rubs, Systolic Murmur - GI/Abdominal Exam GI & Abdominal Exam: Normal Bowel Sounds, Soft. absent: Distended, Tenderness - Extremities Exam Extremities exam: Positive for: pedal pulses present. Negative for: calf tenderness, pedal edema, tenderness Additional comments: Left radial artery access site with pressure device in place - Neurological Exam Neurological exam: Alert, CN II-XII Intact, Oriented x3 - Skin Skin Exam: Dry, Intact, Warm Results - Vital Signs Recent Vital Signs: Last Vital Signs Temp 98 F 03/22/17 09:57 Pulse 64 03/22/17 11:15 Resp 14 03/22/17 09:57 BP 132/82 03/22/17 11:15 Pulse Ox 98 03/22/17 09:40 - Labs Result Diagrams: 03/22/17 08:40 03/22/17 08:40 Labs: Laboratory Results - last 24 hr 03/22/17 03/22/17 03/22/17 08:40 08:40 08:40 WBC 10.0 RBC 4.49 Hgb 11.8 L Hct 36.8 MCV 82.0 MCH 26.3 MCHC 32.1 RDW 14.4 Plt Count 244 MPV 11.2 H Gran % 79.5 H Lymph % (Auto) 17.2 L [place] % (Auto) 3.0 Eos % (Auto) 0.1 L Baso % (Auto) 0.2 Gran # 7.98 H Lymph # 1.7 [place] # 0.3 Eos # 0.0 Baso # 0.02 Sodium 139 Potassium 4.6 Chloride 100 Carbon Dioxide 30 Anion Gap 14 BUN 22 H Creatinine 0.8 Est GFR ( Amer) > 60 Est GFR (Non-Af Amer) > 60 POC Glucose (mg/dL) Random Glucose 142 H Hemoglobin A1c 5.0 Calcium 9.5 Lactate Dehydrogenase 532 Total Creatine Kinase 260 H CK-MB (CK-2) 25.6 H CK-MB (CK-2) % 9.8 H Troponin I 2.80 H* D TSH 3rd Generation 03/22/17 03/22/17 08:40 08:54 WBC RBC Hgb Hct MCV MCH MCHC RDW Plt Count MPV Gran % Lymph % (Auto) [place] % (Auto) Eos % (Auto) Baso % (Auto) Gran # Lymph # [place] # Eos # Baso # Sodium Potassium Chloride Carbon Dioxide Anion Gap BUN Creatinine Est GFR ( Amer) Est GFR (Non-Af Amer) POC Glucose (mg/dL) 133 H Random Glucose Hemoglobin A1c Calcium Lactate Dehydrogenase Total Creatine Kinase CK-MB (CK-2) CK-MB (CK-2) % Troponin I TSH 3rd Generation 0.45 L Assessment & Plan - Assessment and Plan (Free Text) Assessment: 61 year old female with a PMH of RA and HTN who presented for chest pain and was found to have an inferior wall STEMI, s/p cath with placement of IMELDA to mid RCA Plan: Neurological AAOx4, nonfocal Cardiovascular Inferior STEMI, code HEART now S/p cath with IMELDA to mid RCA by cardiology Dr. Schilling Will monitor in the ICU for any signs of bleeding Continue with integrilin gtt Continue ASA, plavix, and lipitor Control BP, cont lisinopril and PRN hydralazine Pulmnologic Protecting airway Maintain O2Sat >92%, currently on RA GI On heart healthy diet PRN zofran in place ID No leukocytosis No acute signs of infection Continue to monitor Heme HD stable Mild anemia, will f/u CBC tomorrow AM Nephro/Electrolytes BUN and Cr wnl Monitoring IxOs Will repeat CMP in the AM Continue NS @ 50 Patient was seen and examined and case was discussed at length with attending physician - Date & Time Date: 03/22/17 Time: 13:00 <Marcos Ku - Last Filed: 03/22/17 17:47> Meds - Medications Medications: Current Medications Acetaminophen (Tylenol 325mg Tab) 650 mg PO Q4H PRN PRN Reason: for pain Last Admin: 03/22/17 12:51 Dose: 650 mg Alprazolam (Xanax) 0.25 mg PO BID PRN PRN Reason: Anxiety Stop: 03/29/17 07:26 Last Admin: 03/22/17 12:51 Dose: 0.25 mg Aspirin (Ecotrin) 81 mg PO DAILY [facility] Atorvastatin Calcium (Lipitor) 80 mg PO DIN [facility] Last Admin: 03/22/17 17:19 Dose: 80 mg Benzocaine/Menthol (Cepacol Sore Throat) 1 enrique MT Q2H PRN PRN Reason: Sore Throat Clopidogrel Bisulfate (Plavix) 75 mg PO DAILY [facility] Docusate Sodium (Colace) 100 mg PO BID [facility] Last Admin: 03/22/17 17:21 Dose: 100 mg Furosemide (Lasix) 40 mg PO DAILY [facility] Hydralazine HCl (Apresoline) 10 mg PO QID PRN PRN Reason: for SBP>170 Nitroglycerin/Dextrose (Nitroglycerin 50 Mg/250 Ml D5w) 50 mg in 250 mls @ 3 mls/hr IV .Q24H PRN; Protocol; 10 MCG/MIN PRN Reason: Pain, severe (8-10) Last Admin: 03/22/17 06:01 Dose: 3 mls/hr Sodium Chloride (Sodium Chloride 0.9%) 1,000 mls @ 50 mls/hr IV .Q20H TATA Stop: 03/22/17 23:59 Eptifibatide (Integrilin) 75 mg in 100 mls @ 14.508 mls/hr IV .Q6H54M TATA; 2 MCG/KG/MIN PRN Reason: Protocol Last Admin: 03/22/17 13:00 Dose: 14.508 mls/hr Insulin Human Regular (Humulin R Low) 0 units SC ACHS [facility] PRN Reason: Protocol Last Admin: 03/22/17 16:58 Dose: Not Given Lisinopril (Zestril) 20 mg PO DAILY [facility] Last Admin: 03/22/17 11:15 Dose: 20 mg Metoprolol Tartrate (Lopressor) 25 mg PO BID [facility] Last Admin: 03/22/17 17:16 Dose: 25 mg Ondansetron HCl (Zofran Inj) 4 mg IV Q6H PRN PRN Reason: Nausea/Vomiting Pantoprazole Sodium (Protonix Inj) 40 mg IVP DAILY [facility] Tramadol HCl (Ultram) 50 mg PO ONCE ONE Stop: 03/22/17 18:01 Last Admin: 03/22/17 17:15 Dose: 50 mg Zolpidem Tartrate (Ambien) 5 mg PO HS PRN PRN Reason: Insomnia Results - Vital Signs Recent Vital Signs: Last Vital Signs Temp 98 F 03/22/17 09:57 Pulse 55 L 03/22/17 17:16 Resp 14 03/22/17 09:57 BP 108/54 L 03/22/17 17:16 Pulse Ox 98 03/22/17 09:40 - Labs Result Diagrams: 03/22/17 08:40 03/22/17 08:40 Labs: Laboratory Results - last 24 hr 03/22/17 03/22/17 03/22/17 08:40 08:40 08:40 WBC 10.0 RBC 4.49 Hgb 11.8 L Hct 36.8 MCV 82.0 MCH 26.3 MCHC 32.1 RDW 14.4 Plt Count 244 MPV 11.2 H Gran % 79.5 H Lymph % (Auto) 17.2 L [place] % (Auto) 3.0 Eos % (Auto) 0.1 L Baso % (Auto) 0.2 Gran # 7.98 H Lymph # 1.7 [place] # 0.3 Eos # 0.0 Baso # 0.02 Sodium 139 Potassium 4.6 Chloride 100 Carbon Dioxide 30 Anion Gap 14 BUN 22 H Creatinine 0.8 Est GFR ( Amer) > 60 Est GFR (Non-Af Amer) > 60 POC Glucose (mg/dL) Random Glucose 142 H Hemoglobin A1c 5.0 Calcium 9.5 Lactate Dehydrogenase 532 Total Creatine Kinase 260 H CK-MB (CK-2) 25.6 H CK-MB (CK-2) % 9.8 H Troponin I 2.80 H* D TSH 3rd Generation 03/22/17 03/22/17 03/22/17 08:40 08:54 16:50 WBC RBC Hgb Hct MCV MCH MCHC RDW Plt Count MPV Gran % Lymph % (Auto) [place] % (Auto) Eos % (Auto) Baso % (Auto) Gran # Lymph # [place] # Eos # Baso # Sodium Potassium Chloride Carbon Dioxide Anion Gap BUN Creatinine Est GFR ( Amer) Est GFR (Non-Af Amer) POC Glucose (mg/dL) 133 H Random Glucose Hemoglobin A1c Calcium Lactate Dehydrogenase 593 Total Creatine Kinase 653 H CK-MB (CK-2) CK-MB (CK-2) % Troponin I 19.50 H* D TSH 3rd Generation 0.45 L Attending/Attestation - Attestation I have personally seen and examined this patient.: Yes I have fully participated in the care of the patient.: Yes I have reviewed all pertinent clinical information: Yes Notes (Text): 03/22/17 17:43 61 yo female s/p STEMI/code heart, IMELDA placement. continue integrillin, statins , bb, asa, plavix. tolerates oral nutrition, hemodynamically and respiratory [place] stable ccm time 40 min
[2017-03-22] MEDS ORDERED: Bacitracin 500 Units/gm Oint Foilpak UD ONE ×2 (13:37→17:30)
--- NOTE | 2017-03-22 14:24 | CP.PCM.HP ---
<Olive Thacker - Last Filed: 03/22/17 14:40> History of Present Illness - History of Present Illness History of Present Illness: Dr. Cruz Service CC: Chest Pain HPI: 61 female with a PMH of HTN, asthma, GERD, and RA, was brought in by the paramedics to the ED for chest pain. The pt states that the pain started about midnight and progressively got worse. The patients family called the ambulance after the pain continued and proceeded to increase in severity. Pt denied previous episodes of similair chest pains. Pt described the chest pain as constant, aching in quality and nonradiating and rated at a 7/10 in intensity. Pt had associated SOB, nausea and vomitting with onset of pain. Pt presented to the [facility] ED. EKG in ED suggested acute inferior wall injury with ST elevations in leads II, III, and AVF, and a CODE STEMI was initiated at 03/22 05:48AM. Dr. Schilling, Cardio was consulted, and proceeded with a cardiac catheterization and had a PTCA with IMELDA of mid RCA within 40 mins of code heart. Patient was admitted to ICU post op. Patient was examined post op at bedside, she denied any fever, chills, CP, SOB, abdominal pain, N/V/D, or FLEMING. Patient did complain of oral cavity/throat pain that has been bothering her for the past 3 days, and felt as if she was getting a cold. PMH: HTN, GERD, Asthma, RA, Osteoporosis PSH: Dilatation and cutterage FamHx: [place], DM, HTN SHx: Light smoker <10 cigarettes a day, Denies alcohol/substance abuse Meds: Losartan Allergies: Penicillin PMD: Dr. Niño Present on Admission - Present on Admission Any Indicators Present on Admission: No Review of Systems - Review of Systems Review of Systems: as per HPI otherwise negative Past Patient History - Past Social History Smoking Status: Light Smoker < 10 Cigarettes Daily - CARDIAC Hx Hypertension: Yes - PULMONARY Hx Asthma: Yes - NEUROLOGICAL Hx Neurological Disorder: No - HEENT Hx HEENT Problems: No - RENAL Hx Chronic Kidney Disease: No - ENDOCRINE/METABOLIC Hx Endocrine Disorders: No - HEMATOLOGICAL/ONCOLOGICAL Hx Blood Disorders: No - INTEGUMENTARY Hx Dermatological Problems: No - MUSCULOSKELETAL/RHEUMATOLOGICAL Hx Falls: No - GASTROINTESTINAL Hx Gastroesophageal Reflux: Yes - GENITOURINARY/GYNECOLOGICAL Hx Genitourinary Disorders: No - PSYCHIATRIC Hx Substance Use: No - SURGICAL HISTORY Hx Surgeries: Yes Hx Dilation and Curettage: Yes Meds Allergies/Adverse Reactions: Allergies Allergy/AdvReac Type Severity Reaction Status Date / Time Penicillins Allergy ANAPHYLAXIS Verified 03/22/17 05:56 Physical Exam - Constitutional Appears: No Acute Distress - Head Exam Head Exam: ATRAUMATIC, NORMAL INSPECTION, NORMOCEPHALIC - Eye Exam Eye Exam: EOMI, Normal appearance, PERRL Pupil Exam: NORMAL ACCOMODATION, PERRL - ENT Exam ENT Exam: Mucous Membranes Moist, Normal Exam - Neck Exam Neck exam: Positive for: Normal Inspection - Respiratory Exam Respiratory Exam: Clear to Auscultation Bilateral, NORMAL BREATHING PATTERN - Cardiovascular Exam Cardiovascular Exam: REGULAR RHYTHM, +S1, +S2 - GI/Abdominal Exam GI & Abdominal Exam: Normal Bowel Sounds, Soft. absent: Tenderness - Extremities Exam Extremities exam: Positive for: normal inspection Additional comments: L wrist band in place - Neurological Exam Neurological exam: Alert, CN II-XII Intact, Normal Gait, Oriented x3, Reflexes Normal - Psychiatric Exam Psychiatric exam: Normal Affect, Normal Mood - Skin Skin Exam: Dry, Intact, Normal Color, Warm Results - Vital Signs Recent Vital Signs: Last Vital Signs Temp 98 F 03/22/17 09:57 Pulse 64 03/22/17 11:15 Resp 14 03/22/17 09:57 BP 132/82 03/22/17 11:15 Pulse Ox 98 03/22/17 09:40 - Labs Result Diagrams: 03/22/17 08:40 03/22/17 08:40 Labs: Laboratory Results - last 24 hr 03/22/17 03/22/17 03/22/17 08:40 08:40 08:40 WBC 10.0 RBC 4.49 Hgb 11.8 L Hct 36.8 MCV 82.0 MCH 26.3 MCHC 32.1 RDW 14.4 Plt Count 244 MPV 11.2 H Gran % 79.5 H Lymph % (Auto) 17.2 L Trimble % (Auto) 3.0 Eos % (Auto) 0.1 L Baso % (Auto) 0.2 Gran # 7.98 H Lymph # 1.7 Trimble # 0.3 Eos # 0.0 Baso # 0.02 Sodium 139 Potassium 4.6 Chloride 100 Carbon Dioxide 30 Anion Gap 14 BUN 22 H Creatinine 0.8 Est GFR ( Amer) > 60 Est GFR (Non-Af Amer) > 60 POC Glucose (mg/dL) Random Glucose 142 H Hemoglobin A1c 5.0 Calcium 9.5 Lactate Dehydrogenase 532 Total Creatine Kinase 260 H CK-MB (CK-2) 25.6 H CK-MB (CK-2) % 9.8 H Troponin I 2.80 H* D TSH 3rd Generation 03/22/17 03/22/17 08:40 08:54 WBC RBC Hgb Hct MCV MCH MCHC RDW Plt Count MPV Gran % Lymph % (Auto) Trimble % (Auto) Eos % (Auto) Baso % (Auto) Gran # Lymph # Trimble # Eos # Baso # Sodium Potassium Chloride Carbon Dioxide Anion Gap BUN Creatinine Est GFR ( Amer) Est GFR (Non-Af Amer) POC Glucose (mg/dL) 133 H Random Glucose Hemoglobin A1c Calcium Lactate Dehydrogenase Total Creatine Kinase CK-MB (CK-2) CK-MB (CK-2) % Troponin I TSH 3rd Generation 0.45 L Assessment & Plan - Assessment and Plan (Free Text) Assessment: 61 AA F with a PMHx of RA, HTN, GERD, and asthma admitted for inferior wall STEMI, s/p cath with placement of IMELDA x1 to mid RCA via left radial. Pt is on integrillin drip to be DC at midnight. Inferior Wall WA - EKG with ELKE in 2,3 and aVF, reciprocal changes in aVL - Code Heart, Dr. Schilling took for Cath within 40 mins, placed IMELDA x1 to mid RCA - Integrillin drip to be DC at midnight - Asa, plavix, lipitor, BB, Acei as per Cardio - No signs of active bleeding - Heart Healthy diet - Continue to monitor HTN - stable - lisinopril, metoprolol - hydralazine prn - IVF NS@ 50, lasix 40mg Daily - continue to monitor RA - stable GERD - Protonix - Heart Healthy Diet Asthma - stable - 02 sat >90% Sore throat - Cepacol GI DVT Ppx reviewed Seen reviewed and discussed with attending <Lani Cruz - Last Filed: 03/23/17 16:56> Results - Vital Signs Recent Vital Signs: Last Vital Signs Temp 98.4 F 03/23/17 12:00 Pulse 61 03/23/17 14:30 Resp 23 03/23/17 14:30 BP 102/38 L 03/23/17 14:00 Pulse Ox 100 03/23/17 12:00 - Labs Result Diagrams: 03/23/17 12:00 03/23/17 08:00 Labs: Laboratory Results - last 24 hr 03/22/17 03/22/17 03/22/17 16:31 16:45 16:50 WBC RBC Hgb Hct MCV MCH MCHC RDW Plt Count MPV Gran % Lymph % (Auto) Trimble % (Auto) Eos % (Auto) Baso % (Auto) Gran # Lymph # Trimble # Eos # Baso # Sodium Potassium Chloride Carbon Dioxide Anion Gap BUN Creatinine Est GFR ( Amer) Est GFR (Non-Af Amer) POC Glucose (mg/dL) 227 H 80 Random Glucose Calcium Phosphorus Magnesium Total Bilirubin AST ALT Alkaline Phosphatase Lactate Dehydrogenase 593 Total Creatine Kinase 653 H CK-MB (CK-2) 65.4 H CK-MB (CK-2) % 10.0 H Troponin I 19.50 H* D Total Protein Albumin Globulin Albumin/Globulin Ratio Free T4 03/22/17 03/23/17 03/23/17 16:50 00:29 06:00 WBC 8.5 RBC 3.81 Hgb 9.8 L D Hct 31.2 L MCV 81.9 MCH 25.7 MCHC 31.4 RDW 14.6 H Plt Count 223 MPV 10.8 Gran % 55.4 Lymph % (Auto) 32.0 Trimble % (Auto) 10.1 H Eos % (Auto) 2.3 Baso % (Auto) 0.2 Gran # 4.73 Lymph # 2.7 Trimble # 0.9 H Eos # 0.2 Baso # 0.02 Sodium Potassium Chloride Carbon Dioxide Anion Gap BUN Creatinine Est GFR ( Amer) Est GFR (Non-Af Amer) POC Glucose (mg/dL) 99 Random Glucose Calcium Phosphorus Magnesium Total Bilirubin AST ALT Alkaline Phosphatase Lactate Dehydrogenase Total Creatine Kinase CK-MB (CK-2) CK-MB (CK-2) % Troponin I Total Protein Albumin Globulin Albumin/Globulin Ratio Free T4 1.31 03/23/17 03/23/17 08:00 12:00 WBC 7.8 RBC 4.08 Hgb 10.5 L Hct 33.6 L MCV 82.4 MCH 25.7 MCHC 31.3 RDW 14.4 Plt Count 231 MPV 10.5 Gran % 51.8 Lymph % (Auto) 33.2 Trimble % (Auto) 11.6 H Eos % (Auto) 3.1 Baso % (Auto) 0.3 Gran # 4.06 Lymph # 2.6 Trimble # 0.9 H Eos # 0.2 Baso # 0.02 Sodium 136 Potassium 4.4 Chloride 103 Carbon Dioxide 28 Anion Gap 10 BUN 25 H Creatinine 0.9 Est GFR ( Amer) > 60 Est GFR (Non-Af Amer) > 60 POC Glucose (mg/dL) Random Glucose 94 Calcium 8.9 Phosphorus 3.7 Magnesium 2.0 Total Bilirubin 0.8 AST 135 H D ALT 31 Alkaline Phosphatase 79 Lactate Dehydrogenase 979 H Total Creatine Kinase 706 H CK-MB (CK-2) 37.2 H CK-MB (CK-2) % 5.3 H Troponin I 12.60 H* D Total Protein 7.6 Albumin 4.0 Globulin 3.6 Albumin/Globulin Ratio 1.1 Free T4 Attending/Attestation - Attestation I have personally seen and examined this patient.: Yes I have fully participated in the care of the patient.: Yes I have reviewed all pertinent clinical information: Yes Notes (Text): 03/23/17 16:53 Attending note; Patient seen and examined with resident in ICU. Patient is a 61 year old female with PMH of hypertension, asthma, gastroesophageal reflux, and rheumatoid arthritis, was brought in by the paramedics to the ED for chest pain. Found to have acute ST elevation in 2- 3 aVF. Code Heart was called. Status post RCA stent. Continue aspirin, Plavix, Integrilin. Continue beta blockers and AMRITA inhibitor. Monitor closely in ICU. Upon discharge the patient will follow up with PMD .
--- NOTE | 2017-03-22 17:13 | CARD ---
APPROVED REPORT EKG Measurement Heart [id number] <Conclusion> Normal sinus rhythm Possible Left atrial enlargement acute Inferior infarct Lateral injury pattern ACUTE CO Consider right ventricular involvement in acute inferior infarct Abnormal ECG
[2017-03-22 17:37] LABS: TROPONIN I 19.5 ng/mL
[2017-03-23 06:32] LABS: BASO # 0.02 K/mm3 (0.0-2.0); BASO % 0.2 % (0.0-3.0); EOS # 0.2 (0.0-0.7); EOS % 2.3 % (1.5-5.0); GRAN # 4.73 (1.4-6.5); GRAN % 55.4 % (50.0-68.0); HEMATOCRIT 31.2 % (36.0-48.0); LYMPH # 2.7 (1.2-3.4); MEAN CELL VOLUME 81.9 fl (80.0-105.0); MEAN CORPUSCULAR HEMOGLOBIN 25.7 pg (25.0-35.0); MEAN CORPUSCULAR HGB CONC 31.4 g/dl (31.0-37.0); MEAN PLATELET VOLUME 10.8 fl (7.0-11.0); MONO # 0.9 (0.1-0.6); MONO % 10.1 % (1.0-6.0); RED CELL DISTRIBUTION WIDTH 14.6 % (11.5-14.5); WHITE BLOOD COUNT 8.5 10^3/ul (4.5-11.0)
[2017-03-23] MEDS ORDERED: Albuterol-Ipratrop 3 mg / 0.5 (3 ml) UD IH PRN (07:54)
[2017-03-23] MEDS ORDERED: guaiFENesin DM 200 mg-20 mg/10 ml UD PO PRN (07:54)
[2017-03-23 08:24] LABS: ALB/GLOB RATIO 1.1 (1.1-1.8); ALKALINE PHOSPHATASE 79 U/L (38-126); ALT/SGPT 31 U/L (7-56); AST/SGOT 135 U/L (14-36); BILIRUBIN,TOTAL 0.8 mg/dL (0.2-1.3); BLOOD UREA NITROGEN 25 mg/dL (7-21); CALCIUM 8.9 mg/dL (8.4-10.5); CARBON DIOXIDE 28 mmol/L (21-33); CHLORIDE 103 mmol/L (98-107); GFR AFRICAN-AMERICAN > 60; GLUCOSE,RANDOM 94 mg/dL (70-110); PHOSPHOROUS 3.7 mg/dL (2.5-4.5); POTASSIUM 4.4 mmol/L (3.6-5.0); SODIUM 136 mmol/L (132-148); TOTAL PROTEIN 7.6 g/dL (5.8-8.3)
[2017-03-23] MEDS: Insulin Reg-LOW-Coverage SC SCH ×5 (08:25→22:46)
[2017-03-23] MEDS: levoFLOXacin 750 mg in D5W 750 MG/150 ML BAG IVPB SCH (09:31)
--- NOTE | 2017-03-23 09:37 | CP.CCUPN ---
<Victor M Neal - Last Filed: 03/23/17 11:02> CCU Subjective - Physician Review Subjective (Free Text): Patient seen and examined at bedside. Resting comfortably in bed. No acute overnight events. Patient states chest pain has resolved. Admits to dark red sputum produced when coughing and scant dark red tinged mucus when clearing nasal discharge. Denies fever, chills, chest pain, shortness of breath, abdominal pain, nausea, vomiting, diarrhea, constipation, and urinary symptoms. 03/23/17 09:26 CCU Objective - Vital Signs / Intake & Output Vital Signs (Last 4 hours): Vital Signs Pulse Resp BP Pulse Ox 03/23/17 06:20 60 22 99 03/23/17 06:10 55 L 18 97 03/23/17 06:00 53 L 13 111/53 L 99 03/23/17 05:50 60 18 98 03/23/17 05:40 54 L 32 H 97 03/23/17 05:30 55 L 17 96 Intake and Output (Last 8hrs): Intake & Output 03/22/17 03/23/17 03/23/17 22:59 06:59 14:59 Intake Total 495 350 Output Total 1700 200 Balance -1205 150 Weight 206 lb Intake: IV 200 Left Antecubital 200 Oral 360 150 Other 135 Output: Urine 1700 200 Urine, Voided 1700 200 Other: # Bowel Movements 0 - Physical Exam Head: Positive for: Atraumatic, Normocephalic Pupils: Positive for: PERRL Extroacular Muscles: Positive for: EOMI Conjunctiva: Positive for: Normal Mouth: Positive for: Moist Mucous Membranes Neck: Positive for: Normal Range of Motion Respiratory/Chest: Positive for: Clear to Auscultation, Good Air Exchange. Negative for: Respiratory Distress, Accessory Muscle Use Cardiovascular: Positive for: Regular Rate and Rhythm, Normal S1, S2. Negative for: Murmurs Abdomen: Positive for: Normal Bowel Sounds. Negative for: Tenderness, Distention, Peritoneal Signs Back: Positive for: Normal Inspection Upper Extremity: Negative for: Cyanosis, Edema Lower Extremity: Negative for: Edema Neurological: Positive for: CN II-XII Intact, Speech Normal Skin: Positive for: Warm, Dry, Normal Color. Negative for: Rashes Psychiatric: Positive for: Alert, Oriented x 3, Normal Insight, Normal Concentration - Medications Active Medications: Active Medications Generic Name Dose Route Start Last Admin Trade Name Freq PRN Reason Stop Dose Admin Acetaminophen 650 mg 03/22/17 07:25 03/22/17 12:51 Tylenol 325mg Tab PO 650 mg Q4H PRN Administration for pain Albuterol/Ipratropium 3 ml 03/23/17 08:00 Duoneb 3 Mg/0.5 Mg (3 Ml) Ud IH [id number] TATA Albuterol/Ipratropium 3 ml 03/23/17 07:54 Duoneb 3 Mg/0.5 Mg (3 Ml) Ud IH Q2H PRN Shortness of Breath Alprazolam 0.25 mg 03/22/17 07:25 03/22/17 12:51 Xanax PO 03/29/17 07:26 0.25 mg BID PRN Administration Anxiety Aspirin 81 mg 03/23/17 10:00 Ecotrin PO DAILY [facility] Atorvastatin Calcium 80 mg 03/22/17 17:00 03/22/17 17:19 Lipitor PO 80 mg DIN TATA Administration Benzocaine/Menthol 1 enrique 03/22/17 09:49 Cepacol Sore Throat MT Q2H PRN Sore Throat Clopidogrel Bisulfate 75 mg 03/23/17 10:00 Plavix PO DAILY [facility] Docusate Sodium 100 mg 03/22/17 10:00 03/22/17 17:21 Colace PO 100 mg BID [facility] Administration Furosemide 40 mg 03/23/17 10:00 Lasix PO DAILY [facility] Guaifenesin/Dextromethorphan 10 ml 03/23/17 07:54 Robitussin Dm PO Q4H PRN Cough Hydralazine HCl 10 mg 03/22/17 07:35 Apresoline PO QID PRN for SBP>170 Nitroglycerin/Dextrose 50 mg in 250 mls @ 3 mls/hr 03/22/17 05:54 03/22/17 06 :01 Nitroglycerin 50 Mg/250 Ml D5w IV 3 mls/hr .Q24H PRN Administration Pain, severe (8-10) Protocol 10 MCG/MIN Eptifibatide 75 mg in 100 mls @ 14.508 mls/hr 03/22/17 07:45 03/22/17 20:35 Integrilin IV 14.508 mls/hr .Q6H54M TATA Administration Protocol 2 MCG/KG/MIN Levofloxacin/Dextrose 750 mg in 150 mls @ 100 mls/hr 03/23/17 10:00 Levaquin 750mg IVPB DAILY [facility] Insulin Human Regular 0 units 03/22/17 11:30 03/23/17 08:25 Humulin R Low SC Not Given ACHS [facility] Protocol Lisinopril 20 mg 03/22/17 10:00 03/22/17 11:15 Zestril PO 20 mg DAILY [facility] Administration Metoprolol Tartrate 25 mg 03/22/17 10:00 03/22/17 17:16 Lopressor PO 25 mg BID [facility] Administration Ondansetron HCl 4 mg 03/22/17 07:25 Zofran Inj IV Q6H PRN Nausea/Vomiting Pantoprazole Sodium 40 mg 03/22/17 14:45 Protonix Inj IVP DAILY [facility] Sodium Chloride 0 ml 03/23/17 08:15 [place] Nasal [place] NS BID PRN Nasal congestion Zolpidem Tartrate 5 mg 03/22/17 07:25 Ambien PO HS PRN Insomnia - Patient Studies Lab Studies: Lab Studies 03/23/17 03/23/17 03/23/17 Range/Units 08:00 06:00 00:29 WBC 8.5 (4.5-11.0) 10^3/ul RBC 3.81 (3.5-6.1) 10^6/uL Hgb 9.8 L D (12.0-16.0) g/dL Hct 31.2 L (36.0-48.0) % MCV 81.9 (80.0-105.0) fl MCH 25.7 (25.0-35.0) pg MCHC 31.4 (31.0-37.0) g/dl RDW 14.6 H (11.5-14.5) % Plt Count 223 (120.0-450.0) 10^3/uL MPV 10.8 (7.0-11.0) fl Gran % 55.4 (50.0-68.0) % Lymph % (Auto) 32.0 (22.0-35.0) % [place] % (Auto) 10.1 H (1.0-6.0) % Eos % (Auto) 2.3 (1.5-5.0) % Baso % (Auto) 0.2 (0.0-3.0) % Gran # 4.73 (1.4-6.5) Lymph # 2.7 (1.2-3.4) [place] # 0.9 H (0.1-0.6) Eos # 0.2 (0.0-0.7) Baso # 0.02 (0.0-2.0) K/mm3 Sodium 136 (132-148) mmol/L Potassium 4.4 (3.6-5.0) mmol/L Chloride 103 (98-107) mmol/L Carbon Dioxide 28 (21-33) mmol/L Anion Gap 10 (10-20) BUN 25 H (7-21) mg/dL Creatinine 0.9 (0.7-1.2) mg/dl Est GFR ( Amer) > 60 Est GFR (Non-Af Amer) > 60 POC Glucose (mg/dL) 99 (65-110) mg/dL Random Glucose 94 (70-110) mg/dL Hemoglobin A1c (4.2-6.5) % Calcium 8.9 (8.4-10.5) mg/dL Phosphorus 3.7 (2.5-4.5) mg/dL Magnesium 2.0 (1.7-2.2) mg/dL Total Bilirubin 0.8 (0.2-1.3) mg/dL AST 135 H D (14-36) U/L ALT 31 (7-56) U/L Alkaline Phosphatase 79 (38-126) U/L Lactate Dehydrogenase 979 H (333-699) U/L Total Creatine Kinase 706 H (35-230) U/L CK-MB (CK-2) (0.0-3.6) ng/mL CK-MB (CK-2) % (2.5-3.0) % Troponin I 12.60 H* D ng/mL Total Protein 7.6 (5.8-8.3) g/dL Albumin 4.0 (3.0-4.8) g/dL Globulin 3.6 gm/dL Albumin/Globulin Ratio 1.1 (1.1-1.8) Free T4 (0.78-2.19) ng/dL TSH 3rd Generation (0.46-4.68) mIU/mL 1103/22/17 03/22/17 Range/Units 16:50 16:50 16:45 WBC (4.5-11.0) 10^3/ul RBC (3.5-6.1) 10^6/uL Hgb (12.0-16.0) g/dL Hct (36.0-48.0) % MCV (80.0-105.0) fl MCH (25.0-35.0) pg MCHC (31.0-37.0) g/dl RDW (11.5-14.5) % Plt Count (120.0-450.0) 10^3/uL MPV (7.0-11.0) fl Gran % (50.0-68.0) % Lymph % (Auto) (22.0-35.0) % [place] % (Auto) (1.0-6.0) % Eos % (Auto) (1.5-5.0) % Baso % (Auto) (0.0-3.0) % Gran # (1.4-6.5) Lymph # (1.2-3.4) [place] # (0.1-0.6) Eos # (0.0-0.7) Baso # (0.0-2.0) K/mm3 Sodium (132-148) mmol/L Potassium (3.6-5.0) mmol/L Chloride (98-107) mmol/L Carbon Dioxide (21-33) mmol/L Anion Gap (10-20) BUN (7-21) mg/dL Creatinine (0.7-1.2) mg/dl Est GFR ( Amer) Est GFR (Non-Af Amer) POC Glucose (mg/dL) 80 (65-110) mg/dL Random Glucose (70-110) mg/dL Hemoglobin A1c (4.2-6.5) % Calcium (8.4-10.5) mg/dL Phosphorus (2.5-4.5) mg/dL Magnesium (1.7-2.2) mg/dL Total Bilirubin (0.2-1.3) mg/dL AST (14-36) U/L ALT (7-56) U/L Alkaline Phosphatase (38-126) U/L Lactate Dehydrogenase 593 (333-699) U/L Total Creatine Kinase 653 H (35-230) U/L CK-MB (CK-2) 65.4 H (0.0-3.6) ng/mL CK-MB (CK-2) % 10.0 H (2.5-3.0) % Troponin I 19.50 H* D ng/mL Total Protein (5.8-8.3) g/dL Albumin (3.0-4.8) g/dL Globulin gm/dL Albumin/Globulin Ratio (1.1-1.8) Free T4 1.31 (0.78-2.19) ng/dL TSH 3rd Generation (0.46-4.68) mIU/mL 03/22/17 03/22/17 03/22/17 Range/Units 16:31 08:54 08:40 WBC (4.5-11.0) 10^3/ul RBC (3.5-6.1) 10^6/uL Hgb (12.0-16.0) g/dL Hct (36.0-48.0) % MCV (80.0-105.0) fl MCH (25.0-35.0) pg MCHC (31.0-37.0) g/dl RDW (11.5-14.5) % Plt Count (120.0-450.0) 10^3/uL MPV (7.0-11.0) fl Gran % (50.0-68.0) % Lymph % (Auto) (22.0-35.0) % [place] % (Auto) (1.0-6.0) % Eos % (Auto) (1.5-5.0) % Baso % (Auto) (0.0-3.0) % Gran # (1.4-6.5) Lymph # (1.2-3.4) [place] # (0.1-0.6) Eos # (0.0-0.7) Baso # (0.0-2.0) K/mm3 Sodium (132-148) mmol/L Potassium (3.6-5.0) mmol/L Chloride (98-107) mmol/L Carbon Dioxide (21-33) mmol/L Anion Gap (10-20) BUN (7-21) mg/dL Creatinine (0.7-1.2) mg/dl Est GFR ( Amer) Est GFR (Non-Af Amer) POC Glucose (mg/dL) 227 H 133 H (65-110) mg/dL Random Glucose (70-110) mg/dL Hemoglobin A1c (4.2-6.5) % Calcium (8.4-10.5) mg/dL Phosphorus (2.5-4.5) mg/dL Magnesium (1.7-2.2) mg/dL Total Bilirubin (0.2-1.3) mg/dL AST (14-36) U/L ALT (7-56) U/L Alkaline Phosphatase (38-126) U/L Lactate Dehydrogenase (333-699) U/L Total Creatine Kinase (35-230) U/L CK-MB (CK-2) (0.0-3.6) ng/mL CK-MB (CK-2) % (2.5-3.0) % Troponin I ng/mL Total Protein (5.8-8.3) g/dL Albumin (3.0-4.8) g/dL Globulin gm/dL Albumin/Globulin Ratio (1.1-1.8) Free T4 (0.78-2.19) ng/dL TSH 3rd Generation 0.45 L (0.46-4.68) mIU/mL 03/22/17 03/22/17 Range/Units 08:40 08:40 WBC (4.5-11.0) 10^3/ul RBC (3.5-6.1) 10^6/uL Hgb (12.0-16.0) g/dL Hct (36.0-48.0) % MCV (80.0-105.0) fl MCH (25.0-35.0) pg MCHC (31.0-37.0) g/dl RDW (11.5-14.5) % Plt Count (120.0-450.0) 10^3/uL MPV (7.0-11.0) fl Gran % (50.0-68.0) % Lymph % (Auto) (22.0-35.0) % [place] % (Auto) (1.0-6.0) % Eos % (Auto) (1.5-5.0) % Baso % (Auto) (0.0-3.0) % Gran # (1.4-6.5) Lymph # (1.2-3.4) [place] # (0.1-0.6) Eos # (0.0-0.7) Baso # (0.0-2.0) K/mm3 Sodium 139 (132-148) mmol/L Potassium 4.6 (3.6-5.0) mmol/L Chloride 100 (98-107) mmol/L Carbon Dioxide 30 (21-33) mmol/L Anion Gap 14 (10-20) BUN 22 H (7-21) mg/dL Creatinine 0.8 (0.7-1.2) mg/dl Est GFR ( Amer) > 60 Est GFR (Non-Af Amer) > 60 POC Glucose (mg/dL) (65-110) mg/dL Random Glucose 142 H (70-110) mg/dL Hemoglobin A1c 5.0 (4.2-6.5) % Calcium 9.5 (8.4-10.5) mg/dL Phosphorus (2.5-4.5) mg/dL Magnesium (1.7-2.2) mg/dL Total Bilirubin (0.2-1.3) mg/dL AST (14-36) U/L ALT (7-56) U/L Alkaline Phosphatase (38-126) U/L Lactate Dehydrogenase 532 (333-699) U/L Total Creatine Kinase 260 H (35-230) U/L CK-MB (CK-2) 25.6 H (0.0-3.6) ng/mL CK-MB (CK-2) % 9.8 H (2.5-3.0) % Troponin I 2.80 H* D ng/mL Total Protein (5.8-8.3) g/dL Albumin (3.0-4.8) g/dL Globulin gm/dL Albumin/Globulin Ratio (1.1-1.8) Free T4 (0.78-2.19) ng/dL TSH 3rd Generation (0.46-4.68) mIU/mL Laboratory Results - last 24 hr 03/22/17 03/22/17 03/22/17 08:40 08:40 08:40 WBC RBC Hgb Hct MCV MCH MCHC RDW Plt Count MPV Gran % Lymph % (Auto) [place] % (Auto) Eos % (Auto) Baso % (Auto) Gran # Lymph # [place] # Eos # Baso # Sodium 139 Potassium 4.6 Chloride 100 Carbon Dioxide 30 Anion Gap 14 BUN 22 H Creatinine 0.8 Est GFR ( Amer) > 60 Est GFR (Non-Af Amer) > 60 POC Glucose (mg/dL) Random Glucose 142 H Hemoglobin A1c 5.0 Calcium 9.5 Phosphorus Magnesium Total Bilirubin AST ALT Alkaline Phosphatase Lactate Dehydrogenase 532 Total Creatine Kinase 260 H CK-MB (CK-2) 25.6 H CK-MB (CK-2) % 9.8 H Troponin I 2.80 H* D Total Protein Albumin Globulin Albumin/Globulin Ratio Free T4 TSH 3rd Generation 0.45 L 03/22/17 03/22/17 03/22/17 08:54 16:31 16:45 WBC RBC Hgb Hct MCV MCH MCHC RDW Plt Count MPV Gran % Lymph % (Auto) [place] % (Auto) Eos % (Auto) Baso % (Auto) Gran # Lymph # [place] # Eos # Baso # Sodium Potassium Chloride Carbon Dioxide Anion Gap BUN Creatinine Est GFR ( Amer) Est GFR (Non-Af Amer) POC Glucose (mg/dL) 133 H 227 H 80 Random Glucose Hemoglobin A1c Calcium Phosphorus Magnesium Total Bilirubin AST ALT Alkaline Phosphatase Lactate Dehydrogenase Total Creatine Kinase CK-MB (CK-2) CK-MB (CK-2) % Troponin I Total Protein Albumin Globulin Albumin/Globulin Ratio Free T4 TSH 3rd Generation 03/22/17 03/22/17 03/23/17 16:50 16:50 00:29 WBC RBC Hgb Hct MCV MCH MCHC RDW Plt Count MPV Gran % Lymph % (Auto) [place] % (Auto) Eos % (Auto) Baso % (Auto) Gran # Lymph # [place] # Eos # Baso # Sodium Potassium Chloride Carbon Dioxide Anion Gap BUN Creatinine Est GFR ( Amer) Est GFR (Non-Af Amer) POC Glucose (mg/dL) 99 Random Glucose Hemoglobin A1c Calcium Phosphorus Magnesium Total Bilirubin AST ALT Alkaline Phosphatase Lactate Dehydrogenase 593 Total Creatine Kinase 653 H CK-MB (CK-2) 65.4 H CK-MB (CK-2) % 10.0 H Troponin I 19.50 H* D Total Protein Albumin Globulin Albumin/Globulin Ratio Free T4 1.31 TSH 3rd Generation 11/16/17 11/16/17 06:00 08:00 WBC 8.5 RBC 3.81 Hgb 9.8 L D Hct 31.2 L MCV 81.9 MCH 25.7 MCHC 31.4 RDW 14.6 H Plt Count 223 MPV 10.8 Gran % 55.4 Lymph % (Auto) 32.0 [place] % (Auto) 10.1 H Eos % (Auto) 2.3 Baso % (Auto) 0.2 Gran # 4.73 Lymph # 2.7 [place] # 0.9 H Eos # 0.2 Baso # 0.02 Sodium 136 Potassium 4.4 Chloride 103 Carbon Dioxide 28 Anion Gap 10 BUN 25 H Creatinine 0.9 Est GFR ( Amer) > 60 Est GFR (Non-Af Amer) > 60 POC Glucose (mg/dL) Random Glucose 94 Hemoglobin A1c Calcium 8.9 Phosphorus 3.7 Magnesium 2.0 Total Bilirubin 0.8 AST 135 H D ALT 31 Alkaline Phosphatase 79 Lactate Dehydrogenase 979 H Total Creatine Kinase 706 H CK-MB (CK-2) CK-MB (CK-2) % Troponin I 12.60 H* D Total Protein 7.6 Albumin 4.0 Globulin 3.6 Albumin/Globulin Ratio 1.1 Free T4 TSH 3rd Generation EKG/Cardiology Studies: Cardiology / EKG Studies 03/23/17 07:45 ELECTROCARDIOGRAM DAILY Comment: s/p pTCA Reason For Exam: chest pain PERFORMING PHYSICIAN/PROVIDER:: Marco A Schilling 03/24/17 07:45 ELECTROCARDIOGRAM DAILY Comment: s/p pTCA Reason For Exam: chest pain PERFORMING PHYSICIAN/PROVIDER:: Marco A Schilling Fingerstick Blood Sugar Results: 95 Review of Systems - Review of Systems Review of Systems: 12-point review of systems negative except as indicated in the HPI Critical Care Progress Note - Nutrition Nutrition: Nutrition Category Date Time Status Heart Healthy Diet [DIET] Diets 03/22/17 Breakfast Ordered Assessment/Plan - Assessment and Plan (Free Text) Assessment: Patient is a 61 year old female with a PMHx of RA, HTN, GERD, and asthma admitted for evaluation and treatment of a chest pain. Patient was found to have an inferior wall STEMI and is s/p cath with placement of IMELDA x1 to mid RCA via left radial. Plan: Neurological - Patient is awake, alert, responds to verbal stimuli, answers questions appropriately, follows commands, and moves extremities past midline Cardiovascular - Inferior STEMI,S/p cath with IMELDA to mid RCA - Patient is off of the integrilin gtt - Continue ASA, plavix, and lipitor - Control BP, cont lisinopril and PRN hydralazinel, c/w lasix and metoprolol - Cardiology consulted- appreciate recommendations Pulmnologic - Maintain O2Sat >92%, currently on RA - C/w duonebs GI - On heart healthy diet - PRN zofran in place - AST elevated- monitor via daily CMP ID - No leukocytosis - No acute signs of infection - Continue to monitor Heme - Hgbs trended, reviewed, and appreciated, will continue to monitor closely - repeat CBC at noon- will follow up Dark Red Discharge from Nares - continue ocean nasal spray Nephro/Electrolytes - creatinine and BUN trended, reviewed, and appreciated, will continue to monitor closely - Monitoring IxOs Patient seen, case discussed with, and plan approved by attending physician, Dr. Gutierrez. <Gus Gutierrez - Last Filed: 03/23/17 11:58> CCU Objective - Vital Signs / Intake & Output Vital Signs (Last 4 hours): Vital Signs BP 03/23/17 09:29 111/64 Intake and Output (Last 8hrs): Intake & Output 03/22/17 03/23/17 03/23/17 22:59 06:59 14:59 Intake Total 495 350 Output Total 1700 200 Balance -1205 150 Weight 206 lb Intake: IV 200 Left Antecubital 200 Oral 360 150 Other 135 Output: Urine 1700 200 Urine, Voided 1700 200 Other: # Bowel Movements 0 - Medications Active Medications: Active Medications Generic Name Dose Route Start Last Admin Trade Name Freq PRN Reason Stop Dose Admin Acetaminophen 650 mg 03/22/17 07:25 03/22/17 12:51 Tylenol 325mg Tab PO 650 mg Q4H PRN Administration for pain Albuterol/Ipratropium 3 ml 03/23/17 08:00 Duoneb 3 Mg/0.5 Mg (3 Ml) Ud IH [id number] TATA Albuterol/Ipratropium 3 ml 03/23/17 07:54 Duoneb 3 Mg/0.5 Mg (3 Ml) Ud IH Q2H PRN Shortness of Breath Alprazolam 0.25 mg 03/22/17 07:25 03/22/17 12:51 Xanax PO 03/29/17 07:26 0.25 mg BID PRN Administration Anxiety Aspirin 81 mg 03/23/17 10:00 03/23/17 09:29 Ecotrin PO 81 mg DAILY [facility] Administration Atorvastatin Calcium 80 mg 03/22/17 17:00 03/22/17 17:19 Lipitor PO 80 mg DIN [facility] Administration Benzocaine/Menthol 1 enrique 03/22/17 09:49 Cepacol Sore Throat MT Q2H PRN Sore Throat Clopidogrel Bisulfate 75 mg 03/23/17 10:00 03/23/17 09:29 Plavix PO 75 mg DAILY [facility] Administration Docusate Sodium 100 mg 03/22/17 10:00 03/23/17 09:29 Colace PO 100 mg BID [facility] Administration Furosemide 40 mg 03/23/17 10:00 03/23/17 09:29 Lasix PO 40 mg DAILY [facility] Administration Guaifenesin/Dextromethorphan 10 ml 03/23/17 07:54 Robitussin Dm PO Q4H PRN Cough Hydralazine HCl 10 mg 03/22/17 07:35 Apresoline PO QID PRN for SBP>170 Nitroglycerin/Dextrose 50 mg in 250 mls @ 3 mls/hr 03/22/17 05:54 03/22/17 06 :01 Nitroglycerin 50 Mg/250 Ml D5w IV 3 mls/hr .Q24H PRN Administration Pain, severe (8-10) Protocol 10 MCG/MIN Eptifibatide 75 mg in 100 mls @ 14.508 mls/hr 03/22/17 07:45 03/22/17 20:35 Integrilin IV 14.508 mls/hr .Q6H54M TATA Administration Protocol 2 MCG/KG/MIN Levofloxacin/Dextrose 750 mg in 150 mls @ 100 mls/hr 03/23/17 10:00 03/23/17 09:31 Levaquin 750mg IVPB 100 mls/hr DAILY [facility] Administration Insulin Human Regular 0 units 03/22/17 11:30 03/23/17 08:25 Humulin R Low SC Not Given ACHS [facility] Protocol Lisinopril 20 mg 03/22/17 10:00 03/23/17 09:29 Zestril PO 20 mg DAILY [facility] Administration Metoprolol Tartrate 25 mg 03/22/17 10:00 03/23/17 09:30 Lopressor PO 25 mg BID [facility] Administration Ondansetron HCl 4 mg 03/22/17 07:25 Zofran Inj IV Q6H PRN Nausea/Vomiting Pantoprazole Sodium 40 mg 03/22/17 14:45 03/23/17 09:31 Protonix Inj IVP 40 mg DAILY [facility] Administration Sodium Chloride 0 ml 03/23/17 08:15 03/23/17 09:30 [place] Nasal [place] NS 1 sprays BID PRN Administration Nasal congestion Zolpidem Tartrate 5 mg 03/22/17 07:25 Ambien PO HS PRN Insomnia - Patient Studies Lab Studies: Lab Studies 03/23/17 03/23/17 03/23/17 Range/Units 08:00 06:00 00:29 WBC 8.5 (4.5-11.0) 10^3/ul RBC 3.81 (3.5-6.1) 10^6/uL Hgb 9.8 L D (12.0-16.0) g/dL Hct 31.2 L (36.0-48.0) % MCV 81.9 (80.0-105.0) fl MCH 25.7 (25.0-35.0) pg MCHC 31.4 (31.0-37.0) g/dl RDW 14.6 H (11.5-14.5) % Plt Count 223 (120.0-450.0) 10^3/uL MPV 10.8 (7.0-11.0) fl Gran % 55.4 (50.0-68.0) % Lymph % (Auto) 32.0 (22.0-35.0) % [place] % (Auto) 10.1 H (1.0-6.0) % Eos % (Auto) 2.3 (1.5-5.0) % Baso % (Auto) 0.2 (0.0-3.0) % Gran # 4.73 (1.4-6.5) Lymph # 2.7 (1.2-3.4) [place] # 0.9 H (0.1-0.6) Eos # 0.2 (0.0-0.7) Baso # 0.02 (0.0-2.0) K/mm3 Sodium 136 (132-148) mmol/L Potassium 4.4 (3.6-5.0) mmol/L Chloride 103 (98-107) mmol/L Carbon Dioxide 28 (21-33) mmol/L Anion Gap 10 (10-20) BUN 25 H (7-21) mg/dL Creatinine 0.9 (0.7-1.2) mg/dl Est GFR ( Amer) > 60 Est GFR (Non-Af Amer) > 60 POC Glucose (mg/dL) 99 (65-110) mg/dL Random Glucose 94 (70-110) mg/dL Calcium 8.9 (8.4-10.5) mg/dL Phosphorus 3.7 (2.5-4.5) mg/dL Magnesium 2.0 (1.7-2.2) mg/dL Total Bilirubin 0.8 (0.2-1.3) mg/dL AST 135 H D (14-36) U/L ALT 31 (7-56) U/L Alkaline Phosphatase 79 (38-126) U/L Lactate Dehydrogenase 979 H (333-699) U/L Total Creatine Kinase 706 H (35-230) U/L CK-MB (CK-2) 37.2 H (0.0-3.6) ng/mL CK-MB (CK-2) % 5.3 H (2.5-3.0) % Troponin I 12.60 H* D ng/mL Total Protein 7.6 (5.8-8.3) g/dL Albumin 4.0 (3.0-4.8) g/dL Globulin 3.6 gm/dL Albumin/Globulin Ratio 1.1 (1.1-1.8) Free T4 (0.78-2.19) ng/dL 03/22/17 03/22/17 03/22/17 Range/Units 16:50 16:50 16:45 WBC (4.5-11.0) 10^3/ul RBC (3.5-6.1) 10^6/uL Hgb (12.0-16.0) g/dL Hct (36.0-48.0) % MCV (80.0-105.0) fl MCH (25.0-35.0) pg MCHC (31.0-37.0) g/dl RDW (11.5-14.5) % Plt Count (120.0-450.0) 10^3/uL MPV (7.0-11.0) fl Gran % (50.0-68.0) % Lymph % (Auto) (22.0-35.0) % [place] % (Auto) (1.0-6.0) % Eos % (Auto) (1.5-5.0) % Baso % (Auto) (0.0-3.0) % Gran # (1.4-6.5) Lymph # (1.2-3.4) [place] # (0.1-0.6) Eos # (0.0-0.7) Baso # (0.0-2.0) K/mm3 Sodium (132-148) mmol/L Potassium (3.6-5.0) mmol/L Chloride (98-107) mmol/L Carbon Dioxide (21-33) mmol/L Anion Gap (10-20) BUN (7-21) mg/dL Creatinine (0.7-1.2) mg/dl Est GFR ( Amer) Est GFR (Non-Af Amer) POC Glucose (mg/dL) 80 (65-110) mg/dL Random Glucose (70-110) mg/dL Calcium (8.4-10.5) mg/dL Phosphorus (2.5-4.5) mg/dL Magnesium (1.7-2.2) mg/dL Total Bilirubin (0.2-1.3) mg/dL AST (14-36) U/L ALT (7-56) U/L Alkaline Phosphatase (38-126) U/L Lactate Dehydrogenase 593 (333-699) U/L Total Creatine Kinase 653 H (35-230) U/L CK-MB (CK-2) 65.4 H (0.0-3.6) ng/mL CK-MB (CK-2) % 10.0 H (2.5-3.0) % Troponin I 19.50 H* D ng/mL Total Protein (5.8-8.3) g/dL Albumin (3.0-4.8) g/dL Globulin gm/dL Albumin/Globulin Ratio (1.1-1.8) Free T4 1.31 (0.78-2.19) ng/dL 03/22/ Range/Units 16:31 WBC (4.5-11.0) 10^3/ul RBC (3.5-6.1) 10^6/uL Hgb (12.0-16.0) g/dL Hct (36.0-48.0) % MCV (80.0-105.0) fl MCH (25.0-35.0) pg MCHC (31.0-37.0) g/dl RDW (11.5-14.5) % Plt Count (120.0-450.0) 10^3/uL MPV (7.0-11.0) fl Gran % (50.0-68.0) % Lymph % (Auto) (22.0-35.0) % [place] % (Auto) (1.0-6.0) % Eos % (Auto) (1.5-5.0) % Baso % (Auto) (0.0-3.0) % Gran # (1.4-6.5) Lymph # (1.2-3.4) [place] # (0.1-0.6) Eos # (0.0-0.7) Baso # (0.0-2.0) K/mm3 Sodium (132-148) mmol/L Potassium (3.6-5.0) mmol/L Chloride (98-107) mmol/L Carbon Dioxide (21-33) mmol/L Anion Gap (10-20) BUN (7-21) mg/dL Creatinine (0.7-1.2) mg/dl Est GFR ( Amer) Est GFR (Non-Af Amer) POC Glucose (mg/dL) 227 H (65-110) mg/dL Random Glucose (70-110) mg/dL Calcium (8.4-10.5) mg/dL Phosphorus (2.5-4.5) mg/dL Magnesium (1.7-2.2) mg/dL Total Bilirubin (0.2-1.3) mg/dL AST (14-36) U/L ALT (7-56) U/L Alkaline Phosphatase (38-126) U/L Lactate Dehydrogenase (333-699) U/L Total Creatine Kinase (35-230) U/L CK-MB (CK-2) (0.0-3.6) ng/mL CK-MB (CK-2) % (2.5-3.0) % Troponin I ng/mL Total Protein (5.8-8.3) g/dL Albumin (3.0-4.8) g/dL Globulin gm/dL Albumin/Globulin Ratio (1.1-1.8) Free T4 (0.78-2.19) ng/dL Laboratory Results - last 24 hr 03/22/17 03/22/17 03/22/17 16:31 16:45 16:50 WBC RBC Hgb Hct MCV MCH MCHC RDW Plt Count MPV Gran % Lymph % (Auto) [place] % (Auto) Eos % (Auto) Baso % (Auto) Gran # Lymph # [place] # Eos # Baso # Sodium Potassium Chloride Carbon Dioxide Anion Gap BUN Creatinine Est GFR ( Amer) Est GFR (Non-Af Amer) POC Glucose (mg/dL) 227 H 80 Random Glucose Calcium Phosphorus Magnesium Total Bilirubin AST ALT Alkaline Phosphatase Lactate Dehydrogenase 593 Total Creatine Kinase 653 H CK-MB (CK-2) 65.4 H CK-MB (CK-2) % 10.0 H Troponin I 19.50 H* D Total Protein Albumin Globulin Albumin/Globulin Ratio Free T4 03/22/17 03/23/17 03/23/17 16:50 00:29 06:00 WBC 8.5 RBC 3.81 Hgb 9.8 L D Hct 31.2 L MCV 81.9 MCH 25.7 MCHC 31.4 RDW 14.6 H Plt Count 223 MPV 10.8 Gran % 55.4 Lymph % (Auto) 32.0 [place] % (Auto) 10.1 H Eos % (Auto) 2.3 Baso % (Auto) 0.2 Gran # 4.73 Lymph # 2.7 [place] # 0.9 H Eos # 0.2 Baso # 0.02 Sodium Potassium Chloride Carbon Dioxide Anion Gap BUN Creatinine Est GFR ( Amer) Est GFR (Non-Af Amer) POC Glucose (mg/dL) 99 Random Glucose Calcium Phosphorus Magnesium Total Bilirubin AST ALT Alkaline Phosphatase Lactate Dehydrogenase Total Creatine Kinase CK-MB (CK-2) CK-MB (CK-2) % Troponin I Total Protein Albumin Globulin Albumin/Globulin Ratio Free T4 1.31 03/23/17 08:00 WBC RBC Hgb Hct MCV MCH MCHC RDW Plt Count MPV Gran % Lymph % (Auto) [place] % (Auto) Eos % (Auto) Baso % (Auto) Gran # Lymph # [place] # Eos # Baso # Sodium 136 Potassium 4.4 Chloride 103 Carbon Dioxide 28 Anion Gap 10 BUN 25 H Creatinine 0.9 Est GFR ( Amer) > 60 Est GFR (Non-Af Amer) > 60 POC Glucose (mg/dL) Random Glucose 94 Calcium 8.9 Phosphorus 3.7 Magnesium 2.0 Total Bilirubin 0.8 AST 135 H D ALT 31 Alkaline Phosphatase 79 Lactate Dehydrogenase 979 H Total Creatine Kinase 706 H CK-MB (CK-2) 37.2 H CK-MB (CK-2) % 5.3 H Troponin I 12.60 H* D Total Protein 7.6 Albumin 4.0 Globulin 3.6 Albumin/Globulin Ratio 1.1 Free T4 EKG/Cardiology Studies: Cardiology / EKG Studies 03/23/17 07:45 ELECTROCARDIOGRAM DAILY Comment: s/p pTCA Reason For Exam: chest pain PERFORMING PHYSICIAN/PROVIDER:: Marco A Schilling 03/24/17 07:45 ELECTROCARDIOGRAM DAILY Comment: s/p pTCA Reason For Exam: chest pain PERFORMING PHYSICIAN/PROVIDER:: Marco A Schilling Critical Care Progress Note - Nutrition Nutrition: Nutrition Category Date Time Status Heart Healthy Diet [DIET] Diets 03/22/17 Breakfast Ordered Assessment/Plan - Assessment and Plan (Free Text) Plan: Patient seen and examined, with resident, agree with note with following additions/exceptions: Pt is a 61 year old female with a PMHx of RA, HTN, GERD, and asthma admitted for evaluation and treatment of a chest pain, found to have an inferior wall STEMI and is s/p cath with placement of IMELDA x1 to mid RCA via left radial. Currently awake, alert, NAD, doing well. Complaining of mild nose bleeding when blowing her nose. HH slightly downtrended, repeat HH pending. Cont with ASA, Plavix, Statin, BB. Follow up cardiology. If HH stable, transfer to telemetry.
--- NOTE | 2017-03-23 10:00 | CARD ---
APPROVED REPORT EKG Measurement Heart [id number] <Conclusion> Sinus bradycardia with premature atrial complexes Inferior infarct, age undetermined Abnormal ECG
[2017-03-23 12:17] LABS: BASO # 0.02 K/mm3 (0.0-2.0); BASO % 0.3 % (0.0-3.0); EOS # 0.2 (0.0-0.7); EOS % 3.1 % (1.5-5.0); GRAN # 4.06 (1.4-6.5); GRAN % 51.8 % (50.0-68.0); HEMATOCRIT 33.6 % (36.0-48.0); LYMPH # 2.6 (1.2-3.4); LYMPH % 33.2 % (22.0-35.0); MEAN CELL VOLUME 82.4 fl (80.0-105.0); MEAN CORPUSCULAR HEMOGLOBIN 25.7 pg (25.0-35.0); MEAN CORPUSCULAR HGB CONC 31.3 g/dl (31.0-37.0); MEAN PLATELET VOLUME 10.5 fl (7.0-11.0); MONO # 0.9 (0.1-0.6); MONO % 11.6 % (1.0-6.0); RED CELL DISTRIBUTION WIDTH 14.4 % (11.5-14.5); WHITE BLOOD COUNT 7.8 10^3/ul (4.5-11.0)
--- NOTE | 2017-03-23 13:35 | CP.PCM.PN ---
<Olive Thacker - Last Filed: 03/23/17 13:30> Subjective - Date & Time of Evaluation Date of Evaluation: 03/23/17 Time of Evaluation: 07:30 - Subjective Subjective: Dr. Cruz Pt was seen and examined at bedside. No acute complaints at this time. Pt has a productive cough with slight red-tinged sputum. Pt states her nose has been feeling dry. No acute or adverse events overnight, as per nursing staff. Integrillin drip discontinued. Pt denied fever, chills, sob, chest pains, abdominal pains, n/v/d/c or urinary symptoms. Objective - Vital Signs/Intake and Output Vital Signs (last 24 hours): Temp Pulse Resp BP Pulse Ox 98 F 60 22 111/64 99 03/22/17 09:57 03/23/17 06:20 03/23/17 06:20 03/23/17 09:29 03/23/17 06:20 Intake and Output: 03/23/17 03/23/17 06:59 18:59 Intake Total 845 Output Total 1900 Balance -1055 - Medications Medications: Current Medications Acetaminophen (Tylenol 325mg Tab) 650 mg PO Q4H PRN PRN Reason: for pain Last Admin: 03/22/17 12:51 Dose: 650 mg Albuterol/Ipratropium (Duoneb 3 Mg/0.5 Mg (3 Ml) Ud) 3 ml IH [id number] [facility] Albuterol/Ipratropium (Duoneb 3 Mg/0.5 Mg (3 Ml) Ud) 3 ml IH Q2H PRN PRN Reason: Shortness of Breath Alprazolam (Xanax) 0.25 mg PO BID PRN PRN Reason: Anxiety Stop: 03/29/17 07:26 Last Admin: 03/22/17 12:51 Dose: 0.25 mg Aspirin (Ecotrin) 81 mg PO DAILY [facility] Last Admin: 03/23/17 09:29 Dose: 81 mg Atorvastatin Calcium (Lipitor) 80 mg PO DIN [facility] Last Admin: 03/22/17 17:19 Dose: 80 mg Benzocaine/Menthol (Cepacol Sore Throat) 1 enrique MT Q2H PRN PRN Reason: Sore Throat Clopidogrel Bisulfate (Plavix) 75 mg PO DAILY [facility] Last Admin: 03/23/17 09:29 Dose: 75 mg Docusate Sodium (Colace) 100 mg PO BID [facility] Last Admin: 03/23/17 09:29 Dose: 100 mg Furosemide (Lasix) 40 mg PO DAILY [facility] Last Admin: 03/23/17 09:29 Dose: 40 mg Guaifenesin/Dextromethorphan (Robitussin Dm) 10 ml PO Q4H PRN PRN Reason: Cough Hydralazine HCl (Apresoline) 10 mg PO QID PRN PRN Reason: for SBP>170 Nitroglycerin/Dextrose (Nitroglycerin 50 Mg/250 Ml D5w) 50 mg in 250 mls @ 3 mls/hr IV .Q24H PRN; Protocol; 10 MCG/MIN PRN Reason: Pain, severe (8-10) Last Admin: 03/22/17 06:01 Dose: 3 mls/hr Eptifibatide (Integrilin) 75 mg in 100 mls @ 14.508 mls/hr IV .Q6H54M AMBAR; 2 MCG/KG/MIN PRN Reason: Protocol Last Admin: 03/22/17 20:35 Dose: 14.508 mls/hr Levofloxacin/Dextrose (Levaquin 750mg) 750 mg in 150 mls @ 100 mls/hr IVPB DAILY [facility] Last Admin: 03/23/17 09:31 Dose: 100 mls/hr Insulin Human Regular (Humulin R Low) 0 units SC ACHS AMBAR PRN Reason: Protocol Last Admin: 03/23/17 13:05 Dose: Not Given Lisinopril (Zestril) 20 mg PO DAILY [facility] Last Admin: 03/23/17 09:29 Dose: 20 mg Metoprolol Tartrate (Lopressor) 25 mg PO BID [facility] Last Admin: 03/23/17 09:30 Dose: 25 mg Ondansetron HCl (Zofran Inj) 4 mg IV Q6H PRN PRN Reason: Nausea/Vomiting Pantoprazole Sodium (Protonix Inj) 40 mg IVP DAILY [facility] Last Admin: 03/23/17 09:31 Dose: 40 mg Sodium Chloride ([place] Nasal [place]) 0 ml NS BID PRN PRN Reason: Nasal congestion Last Admin: 03/23/17 09:30 Dose: 1 sprays Zolpidem Tartrate (Ambien) 5 mg PO HS PRN PRN Reason: Insomnia - Labs Labs: 03/23/17 12:00 03/23/17 08:00 PT 11.5 SECONDS (9.4-12.5) 03/22/17 05:50 INR 1.04 (0.93-1.08) 03/22/17 05:50 APTT 26.9 Seconds (25.1-36.5) 03/22/17 05:50 - Constitutional Appears: No Acute Distress - Head Exam Head Exam: ATRAUMATIC, NORMAL INSPECTION, NORMOCEPHALIC - Eye Exam Eye Exam: EOMI, Normal appearance, PERRL Pupil Exam: NORMAL ACCOMODATION, PERRL - ENT Exam ENT Exam: Mucous Membranes Moist, Normal Exam - Neck Exam Neck Exam: Full ROM, Normal Inspection. absent: Lymphadenopathy - Respiratory Exam Respiratory Exam: Rhonchi, Wheezes, NORMAL BREATHING PATTERN - Cardiovascular Exam Cardiovascular Exam: REGULAR RHYTHM, +S1, +S2. absent: Murmur - GI/Abdominal Exam GI & Abdominal Exam: Soft, Normal Bowel Sounds. absent: Tenderness - Extremities Exam Extremities Exam: Full ROM, Normal Capillary Refill, Normal Inspection. absent : Joint Swelling, Pedal Edema - Neurological Exam Neurological Exam: Alert, Awake, CN II-XII Intact, Oriented x3 - Psychiatric Exam Psychiatric exam: Normal Affect, Normal Mood - Skin Skin Exam: Dry, Intact, Normal Color, Warm Assessment and Plan - Assessment and Plan (Free Text) Assessment: 61 AA F with a PMHx of RA, HTN, GERD, and asthma admitted for inferior wall STEMI, s/p cath with placement of IMELDA x1 to mid RCA via left radial. Inferior Wall GA - EKG with ELKE in 2,3 and aVF, reciprocal changes in aVL - Code Dr. Shakir Naranjo took for Cath within 40 mins, placed IMELDA x1 to mid RCA - Integrillin drip DC - Asa, plavix, lipitor, BB, Acei as per CardioDr. Schilling - No signs of active bleeding - Heart Healthy diet - Continue to monitor Dark Red Discharge from Nares - Trend H&H, Stable currently - continue ocean nasal spray HTN - stable - lisinopril, metoprolol - hydralazine prn - lasix - IVF NS@ 50, lasix 40mg Daily - continue to monitor Productive Cough - hx asthma - hx smoking - duonebs ambar and prn - robitussin DM - levaquin abx - NS Nasal [place] Tobacco Abuse - counselled and educated pt on cessation - nicotine patch offered RA - stable - analgesics GERD - Protonix - Heart Healthy Diet Asthma - stable - 02 sat >90% Sore throat - Cepacol GI DVT Ppx reviewed Seen reviewed and discussed with attending <Lani Cruz - Last Filed: 03/23/17 16:57> Objective - Vital Signs/Intake and Output Vital Signs (last 24 hours): Temp Pulse Resp BP Pulse Ox 98.4 F 61 23 102/38 L 100 03/23/17 12:00 03/23/17 14:30 03/23/17 14:30 03/23/17 14:00 03/23/17 12:00 Intake and Output: 03/23/17 03/23/17 06:59 18:59 Intake Total 845 Output Total 1900 Balance -1055 - Medications Medications: Current Medications Acetaminophen (Tylenol 325mg Tab) 650 mg PO Q4H PRN PRN Reason: for pain Last Admin: 03/22/17 12:51 Dose: 650 mg Albuterol/Ipratropium (Duoneb 3 Mg/0.5 Mg (3 Ml) Ud) 3 ml IH [id number] AMBAR Albuterol/Ipratropium (Duoneb 3 Mg/0.5 Mg (3 Ml) Ud) 3 ml IH Q2H PRN PRN Reason: Shortness of Breath Alprazolam (Xanax) 0.25 mg PO BID PRN PRN Reason: Anxiety Stop: 03/29/17 07:26 Last Admin: 03/22/17 12:51 Dose: 0.25 mg Aspirin (Ecotrin) 81 mg PO DAILY [facility] Last Admin: 03/23/17 09:29 Dose: 81 mg Atorvastatin Calcium (Lipitor) 80 mg PO DIN [facility] Last Admin: 03/22/17 17:19 Dose: 80 mg Benzocaine/Menthol (Cepacol Sore Throat) 1 enrique MT Q2H PRN PRN Reason: Sore Throat Clopidogrel Bisulfate (Plavix) 75 mg PO DAILY [facility] Last Admin: 03/23/17 09:29 Dose: 75 mg Docusate Sodium (Colace) 100 mg PO BID [facility] Last Admin: 03/23/17 09:29 Dose: 100 mg Furosemide (Lasix) 40 mg PO DAILY [facility] Last Admin: 03/23/17 09:29 Dose: 40 mg Guaifenesin/Dextromethorphan (Robitussin Dm) 10 ml PO Q4H PRN PRN Reason: Cough Hydralazine HCl (Apresoline) 10 mg PO QID PRN PRN Reason: for SBP>170 Nitroglycerin/Dextrose (Nitroglycerin 50 Mg/250 Ml D5w) 50 mg in 250 mls @ 3 mls/hr IV .Q24H PRN; Protocol; 10 MCG/MIN PRN Reason: Pain, severe (8-10) Last Admin: 03/22/17 06:01 Dose: 3 mls/hr Eptifibatide (Integrilin) 75 mg in 100 mls @ 14.508 mls/hr IV .Q6H54M AMBAR; 2 MCG/KG/MIN PRN Reason: Protocol Last Admin: 03/22/17 20:35 Dose: 14.508 mls/hr Levofloxacin/Dextrose (Levaquin 750mg) 750 mg in 150 mls @ 100 mls/hr IVPB DAILY [facility] Last Admin: 03/23/17 09:31 Dose: 100 mls/hr Insulin Human Regular (Humulin R Low) 0 units SC ACHS AMBAR PRN Reason: Protocol Last Admin: 03/23/17 13:05 Dose: Not Given Lisinopril (Zestril) 20 mg PO DAILY [facility] Last Admin: 03/23/17 09:29 Dose: 20 mg Metoprolol Tartrate (Lopressor) 25 mg PO BID [facility] Last Admin: 03/23/17 09:30 Dose: 25 mg Ondansetron HCl (Zofran Inj) 4 mg IV Q6H PRN PRN Reason: Nausea/Vomiting Pantoprazole Sodium (Protonix Inj) 40 mg IVP DAILY [facility] Last Admin: 03/23/17 09:31 Dose: 40 mg Sodium Chloride ([place] Nasal [place]) 0 ml NS BID PRN PRN Reason: Nasal congestion Last Admin: 03/23/17 09:30 Dose: 1 sprays Zolpidem Tartrate (Ambien) 5 mg PO HS PRN PRN Reason: Insomnia - Labs Labs: 03/23/17 12:00 03/23/17 08:00 PT 11.5 SECONDS (9.4-12.5) 03/22/17 05:50 INR 1.04 (0.93-1.08) 03/22/17 05:50 APTT 26.9 Seconds (25.1-36.5) 03/22/17 05:50 Attending/Attestation - Attestation I have personally seen and examined this patient.: Yes I have fully participated in the care of the patient.: Yes I have reviewed all pertinent clinical information, including history, physical exam and plan: Yes Notes (Text): 03/23/17 16:57 Attending note; Patient seen and examined with resident in ICU. Patient is a 61 year old female with PMH of hypertension, asthma, gastroesophageal reflux, and rheumatoid arthritis, was brought in by the paramedics to the ED for chest pain. Found to have acute ST elevation in 2- 3 aVF. Code Heart was called. Status post RCA stent. Continue aspirin, Plavix, Integrilin. Continue beta blockers and AMRITA inhibitor. Clinically stable. Out of bed to chair/ambulating as tolerated. Transferred to telemetry. Nasal congestion; saline nasal spray started. Started on levofloxacin for URI symptoms. Rheumatoid arthritis; continue Tylenol when necessary. Avoid opiates and NSAIDs. Upon discharge the patient will follow up with PMD .
--- NOTE | 2017-03-23 15:01 | PN ---
DATE: 03/23/2017 REASON FOR CONSULTATION AND FOLLOWUP: Acute ST segment myocardial infarction, status post code STEMI, status post primary angioplasty of RCA. BRIEF CLINICAL HISTORY: This is 61-year-old active tobacco abuse female, mild obesity, hypertension, prediabetic admitted with acute inferior wall [place] yesterday morning. The patient subsequently underwent code STEMI and a PTCA with drug eluting stent of RCA was done. The patient is completely chest pain free. Denies any chest pain, shortness of breath, or any palpitations. Emphasis made for complete abstinence of alcohol and compliance with medication and the length of discussion done with Dr. Cruz and resident. PHYSICAL EXAMINATION: VITAL SIGNS: Temperature afebrile, heart rate 60, blood pressure 111/64. HEENT: PERRLA. Extraocular muscles intact. NECK: Supple. No carotid bruits or thyromegaly. CHEST: Clear to auscultation. HEART: S1 and S2 regular. ABDOMEN: Soft. EXTREMITIES: Clubbing or cyanosis negative. LABORATORY DATA: EKG shows normal sinus, T-inversion II, III, and aVF, complete resolution of ST elevation. Blood count as follows; WBC 7.8, hemoglobin 10.5, hematocrit 33.6, platelet count 10.5. Chemistry shows sodium 136, potassium 4.4, chloride 103, carbon dioxide 28, anion gap of 10, BUN 25, creatinine 0.9, AST 135, ALT 131, alkaline phosphatase 79, and troponin 12.6 maximum being 19 with maximum CPK 653, now CPK is 706 trending down. MB fraction maximum being 10, now the MB fraction is 5.3. IMPRESSION: Acute inferior wall myocardial infarction, ST-segment myocardial infarction, status post primary angioplasty, diabetes, hypertension, hyperlipidemia, obesity, body mass index of 36.5 kg, active tobacco abuse. RECOMMENDATION: Continue baby aspirin, continue Plavix 75 mg once a day mandatory for one year, preferably for extended period of time. Continue gentle Lasix, continue lisinopril, continue metoprolol. We will get echo to assess LV function, transfer to telemetry, complete abstinence of alcohol, emphasis made on complete abstinence of alcohol. We will follow with you. We will repeat blood workup in the morning. Possible home discharge tomorrow. Ambulate out of bed to chair. drywall worker for discharge planning. We will get EKG tomorrow morning. Thank you Dr. Cruz for providing us the opportunity in taking care of Melony Barajas. Marco A Schilling MD
[2017-03-23 15:22] VITALS: O2SAT 100
--- NOTE | 2017-03-23 16:17 | CARD ---
APPROVED REPORT EXAM: Two-dimensional and M-mode echocardiogram with Doppler and color Doppler. INDICATION Chest Pain ACUTE IWMI, S/P PTCA 2D DIMENSIONS Left Atrium (2D)4.8 (1.6-4.0cm)IVSd1.2 (0.7-1.1cm) LVDd4.3 (3.9-5.9cm)PWd1.2 (0.7-1.1cm) LVDs3.5 (2.5-4.0cm)FS (%) 19.4 % LVEF (%)40.2 (>50%) M-Mode DIMENSIONS Aortic Root2.80 (2.2-3.7cm)Aortic Cusp Exc.1.50 (1.5-2.0cm) Aortic Valve AoV Peak Pwjltssu038.0cm/Jeannie Peak GR.10mmHg Mitral Valve MV E Ruujhewr41.0cm/sMV A Ctbqvmtj55.1cm/sE/A ratio1.1 TDI Lateral E' Peak V9.36cm/sMedial E' Peak V7.12cm/sE/Lateral E'8.2 E/Medial E'10.8 Pulmonary Valve PV Peak Oehyvegi23.7cm/sPV Peak Grad.1mmHg Tricuspid Valve TR Peak [id number]/sRAP [id number] Peak Gr.24mmHg [id number] LEFT VENTRICLE The left ventricle is normal size. There is mild to moderate concentric left ventricular hypertrophy. The systolic function is mildly impaired.EF-40% There is mild to moderate hypokinesis in the mid-inferolateral wall. The left ventricular diastolic function is normal. There is no ventricular septal defect visualized. There is no left ventricular aneurysm. There is no mass noted in the left ventricle. RIGHT VENTRICLE The right ventricle is mildly dilated. There is normal right ventricular wall thickness. Systolic function is mildly reduced. ATRIA The left atrium is mildly dilated. The right atrium is mildly dilated. The interatrial septum is intact with no evidence for an atrial septal defect. AORTIC VALVE The aortic valve is thickened but opens well. There is trace aortic regurgitation. There is no aortic valvular stenosis. There is no aortic valvular vegetation. MITRAL VALVE The mitral valve is thickened but opens well. Mitral regurgitation is trace to mild. There is no mitral valve stenosis. There is no evidence of mitral valve prolapse. TRICUSPID VALVE The tricuspid valve leaflets are thickened or calcified, but open well. There is mild tricuspid regurgitation.RVSP-34 mmof hg. There is no tricuspid valve stenosis. There is no tricuspid valve prolapse or vegetation. PULMONIC VALVE The pulmonary valve is normal in structure. There is no pulmonic valvular regurgitation. There is no pulmonic valvular stenosis. GREAT VESSELS The aortic root is normal in size. The ascending aorta is normal in size. The pulmonary artery is normal. The IVC is normal in size and collapses >50% with inspiration. PERICARDIAL EFFUSION There is no pleural effusion. There is no pericardial effusion. <Conclusion> The left ventricle is normal size. There is mild to moderate concentric left ventricular hypertrophy. The systolic function is mildly impaired.EF-40% There is mild to moderate hypokinesis in the mid-inferolateral wall. There is trace aortic regurgitation. Mitral regurgitation is trace to mild. There is mild tricuspid regurgitation.RVSP-34 mmof hg. The IVC is normal in size and collapses >50% with inspiration. There is no pericardial effusion. S/p IWMI, S/p Primary PTCA of RCA.
[2017-03-23] MEDS: Albuterol-Ipratrop 3 mg / 0.5 (3 ml) UD IH SCH ×2 (19:59→20:01)
[2017-03-23] MEDS: Eptifibatide 0.75 mg/ml 75 MG/100 ML BOTTLE IV SCH (20:00)
--- NOTE | 2017-03-23 22:04 | CARD ---
APPROVED REPORT EKG Measurement Heart [id number] IA [id number] <Conclusion> Sinus bradycardia with sinus arrhythmia Inferior infarct, recent Prolonged QT interval Abnormal ECG
[2017-03-24] MEDS: Albuterol-Ipratrop 3 mg / 0.5 (3 ml) UD IH SCH (02:26)
[2017-03-24 07:30] LABS: BASO # 0.03 K/mm3 (0.0-2.0); BASO % 0.4 % (0.0-3.0); EOS # 0.4 (0.0-0.7); EOS % 4.6 % (1.5-5.0); GRAN # 3.41 (1.4-6.5); HEMATOCRIT 34.3 % (36.0-48.0); LYMPH % 38.7 % (22.0-35.0); MEAN CELL VOLUME 81.9 fl (80.0-105.0); MEAN CORPUSCULAR HEMOGLOBIN 26.5 pg (25.0-35.0); MEAN CORPUSCULAR HGB CONC 32.4 g/dl (31.0-37.0); MEAN PLATELET VOLUME 10.4 fl (7.0-11.0); MONO % 12.3 % (1.0-6.0); RED CELL DISTRIBUTION WIDTH 14.3 % (11.5-14.5); WHITE BLOOD COUNT 7.8 10^3/ul (4.5-11.0)
[2017-03-24 07:51] LABS: ALB/GLOB RATIO 1.1 (1.1-1.8); ALKALINE PHOSPHATASE 87 U/L (38-126); ALT/SGPT 33 U/L (7-56); AST/SGOT 89 U/L (14-36); BLOOD UREA NITROGEN 15 mg/dL (7-21); CALCIUM 9.5 mg/dL (8.4-10.5); CARBON DIOXIDE 30 mmol/L (21-33); CHLORIDE 102 mmol/L (98-107); GFR AFRICAN-AMERICAN > 60; GLUCOSE,RANDOM 100 mg/dL (70-110); MAGNESIUM 1.8 mg/dL (1.7-2.2); POTASSIUM 4.1 mmol/L (3.6-5.0); SODIUM 139 mmol/L (132-148); TOTAL PROTEIN 7.9 g/dL (5.8-8.3)
--- NOTE | 2017-03-24 07:54 | CP.PCM.DIS ---
<Aminta Tavares - Last Filed: 03/24/17 10:51> Provider - Provider Date of Admission: 03/22/17 07:22 Attending physician: Lani Cruz MD Primary care physician: Aron Niño MD Consults: Dr Schilling cardiology Time Spent in preparation of Discharge (in minutes): 45 Hospital Course - Lab Results Lab Results: Micro Results 03/22/17 09:00 Naris MRSA Culture (Admit) - Final MRSA NOT DETECTED Most Recent Lab Values WBC 7.8 10^3/ul (4.5-11.0) 03/24/17 07:00 RBC 4.19 10^6/uL (3.5-6.1) 03/24/17 07:00 Hgb 11.1 g/dL (12.0-16.0) L 03/24/17 07:00 Hct 34.3 % (36.0-48.0) L 03/24/17 07:00 MCV 81.9 fl (80.0-105.0) 03/24/17 07:00 MCH 26.5 pg (25.0-35.0) 03/24/17 07:00 MCHC 32.4 g/dl (31.0-37.0) 03/24/17 07:00 RDW 14.3 % (11.5-14.5) 03/24/17 07:00 Plt Count 242 10^3/uL (120.0-450.0) 03/24/17 07:00 MPV 10.4 fl (7.0-11.0) 03/24/17 07:00 Gran % 44.0 % (50.0-68.0) L 03/24/17 07:00 Lymph % (Auto) 38.7 % (22.0-35.0) H 03/24/17 07:00 Emanuel % (Auto) 12.3 % (1.0-6.0) H 03/24/17 07:00 Eos % (Auto) 4.6 % (1.5-5.0) 03/24/17 07:00 Baso % (Auto) 0.4 % (0.0-3.0) 03/24/17 07:00 Gran # 3.41 (1.4-6.5) 03/24/17 07:00 Lymph # 3.0 (1.2-3.4) 03/24/17 07:00 Emanuel # 1.0 (0.1-0.6) H 03/24/17 07:00 Eos # 0.4 (0.0-0.7) 03/24/17 07:00 Baso # 0.03 K/mm3 (0.0-2.0) 03/24/17 07:00 PT 11.5 SECONDS (9.4-12.5) 03/22/17 05:50 INR 1.04 (0.93-1.08) 03/22/17 05:50 APTT 26.9 Seconds (25.1-36.5) 03/22/17 05:50 Sodium 139 mmol/L (132-148) 03/24/17 07:00 Potassium 4.1 mmol/L (3.6-5.0) 03/24/17 07:00 Chloride 102 mmol/L (98-107) 03/24/17 07:00 Carbon Dioxide 30 mmol/L (21-33) 03/24/17 07:00 Anion Gap 12 (10-20) 03/24/17 07:00 BUN 15 mg/dL (7-21) 03/24/17 07:00 Creatinine 0.8 mg/dl (0.7-1.2) 03/24/17 07:00 Est GFR ( Amer) > 60 03/24/17 07:00 Est GFR (Non-Af Amer) > 60 03/24/17 07:00 POC Glucose (mg/dL) 100 mg/dL (65-110) 03/24/17 07:43 Random Glucose 100 mg/dL (70-110) 03/24/17 07:00 Hemoglobin A1c 5.0 % (4.2-6.5) 03/22/17 08:40 Calcium 9.5 mg/dL (8.4-10.5) 03/24/17 07:00 Phosphorus 4.0 mg/dL (2.5-4.5) 03/24/17 07:00 Magnesium 1.8 mg/dL (1.7-2.2) 03/24/17 07:00 Total Bilirubin 1.0 mg/dL (0.2-1.3) 03/24/17 07:00 AST 89 U/L (14-36) H D 03/24/17 07:00 ALT 33 U/L (7-56) 03/24/17 07:00 Alkaline Phosphatase 87 U/L (38-126) 03/24/17 07:00 Lactate Dehydrogenase 835 U/L (333-699) H 03/24/17 07:00 Total Creatine Kinase 266 U/L (35-230) H 03/24/17 07:00 CK-MB (CK-2) 37.2 ng/mL (0.0-3.6) H 03/23/17 08:00 CK-MB (CK-2) % 5.3 % (2.5-3.0) H 03/23/17 08:00 Troponin I 4.89 ng/mL H* D 03/24/17 07:00 Total Protein 7.9 g/dL (5.8-8.3) 03/24/17 07:00 Albumin 4.0 g/dL (3.0-4.8) 03/24/17 07:00 Globulin 3.8 gm/dL 03/24/17 07:00 Albumin/Globulin Ratio 1.1 (1.1-1.8) 03/24/17 07:00 Triglycerides 108 mg/dL (35-160) 03/22/17 05:50 Cholesterol 266 mg/dL (130-200) H 03/22/17 05:50 LDL Cholesterol Direct 164 mg/dL (0-129) H 03/22/17 05:50 HDL Cholesterol 49 mg/dL (29-60) 03/22/17 05:50 Free T4 1.31 ng/dL (0.78-2.19) 03/22/17 16:50 TSH 3rd Generation 0.45 mIU/mL (0.46-4.68) L 03/22/17 08:40 Blood Type A POSITIVE 03/22/17 06:02 Blood Type Confirm A POSITIVE 03/22/17 06:58 Antibody Screen Negative 03/22/17 06:02 BBK History Checked No verified bt 03/22/17 06:02 - Hospital Course Hospital Course: Upon Admission 61 female with a PMH of HTN, asthma, GERD, and RA, was brought in by the paramedics to the ED for chest pain. The pt states that the pain started about midnight and progressively got worse. The patients family called the ambulance after the pain continued and proceeded to increase in severity. Pt denied previous episodes of similair chest pains. Pt described the chest pain as constant, aching in quality and nonradiating and rated at a 7/10 in intensity. Pt had associated SOB, nausea and vomitting with onset of pain. [place] [facility] [place] EKG in ED suggested acute inferior wall injury with ST elevations in leads II, III, and AVF, and a CODE STEMI was initiated at 05:48AM. Dr. Schilling, Cardio was consulted, and proceeded with a cardiac catheterization and had a PTCA with IMELDA of mid RCA within 40 mins of code heart. Patient was admitted to ICU post op. Patient was examined post op at bedside, she denied any fever, chills, CP, SOB, abdominal pain, N/V/D, or FLEMING. Patient did complain of oral cavity/throat pain that has been bothering her for the past 3 days, and felt as if she was getting a cold Patient was admitted to the unit. She was started on ASA, plavix, integrilin, integrilin, lipitor, lopressor, lisinopril, and lasix. Patient was monitored overnight and integrilin drip was discontinued in the AM. Patient was transferred to [facility] and monitored overnight. On day of discharge patient was deemed medically stable for discharge. 1) Inferior wall GA: patient to take ASA, Plavix, lipitor, lasix, lisinopril, lopressor 2) Epistaxis: patient to take nasal spray upon discharge 3) HTN: patient to take lisinopril, lopressor, and lasix upon discharge 4) Cough: patient to continue taking Levaquin for 5 days 5) Tobacco abuse: patient advised to abstain from tobacco 6) Rheumatoid arthritis: patient advised to take OTC ibuprofen 7) GERD: patient to take OTC H2 mina 8) Asthma: patient to continue home meds and take claritin 9) Sore throat: patient to take cepacol OTC Upon Discharge Patient stable for discharge home as per hospitalist team and cardiology Patient to take following medications as prescribed: -ASA 81mg po qdaily Disp#30 -Lipitor 80mg po qhs Disp#30 -Plavix 75mg po qdaily Disp#30 -Lasix 40mg po qdaily Disp#30 -Lisinopril 20mg po qdaily Disp#30 -Lopressor 25mg po bid Disp#60 -Levaquin 500mg po qdaily Disp#5 -Nasal spray Disp#1 bottle Patient recommended to abstain from tobacco and alcohol. Patient additionally recommended to follow a low carb, low salt, low fat diet. Patient to follow up with PMD within 7 days and to follow up with Cardiology within 7 days to follow up results of MUGA scan. If symptoms persist or worsen patient to visit ED immediately. Instructions discussed in detail with patient who understands and agrees. Please note this is a discharge summary. For full hospital course please refer to medical records. Discharge Exam - Head Exam Head Exam: ATRAUMATIC, NORMAL INSPECTION, NORMOCEPHALIC - Eye Exam Eye Exam: EOMI, Normal appearance, PERRL. absent: Conjunctival injection, Scleral icterus Pupil Exam: NORMAL ACCOMODATION - ENT Exam ENT Exam: Mucous Membranes Moist - Neck Exam Neck exam: Full Rom, Normal Inspection - Respiratory Exam Respiratory Exam: Clear to PA & Lateral, Wheezes (scattered), NORMAL BREATHING PATTERN, UNREMARKABLE. absent: Accessory Muscle Use, Decreased Breath Sounds, Rales, Rhonchi, Respiratory Distress - Cardiovascular Exam Cardiovascular Exam: REGULAR RHYTHM, RRR, +S1, +S2. absent: Systolic Murmur - GI/Abdominal Exam GI & Abdominal Exam: Normal Bowel Sounds, Soft. absent: Firm, Guarding, Rigid, Tenderness - Extremities Exam Extremities exam: normal capillary refill, normal inspection, pedal pulses present - Back Exam Back exam: NORMAL INSPECTION. absent: rash noted, tenderness - Neurological Exam Neurological exam: Alert, CN II-XII Intact, Oriented x3 - Psychiatric Exam Psychiatric exam: Normal Affect, Normal Mood - Skin Skin Exam: Dry, Intact, Normal Color, Warm Discharge Plan - Discharge Medications Prescriptions: Aspirin [Ecotrin] 81 mg PO DAILY #30 tabec Atorvastatin [Lipitor] 80 mg PO DIN #30 tab Clopidogrel [Plavix] 75 mg PO DAILY #30 tab Container,Empty [Nasal Jeremiah Bottle] 1 each MC Q12 PRN #1 bottle PRN Reason: Dry Nasal Passages Furosemide [Lasix] 40 mg PO DAILY #30 tab Levofloxacin [Levaquin] 500 mg PO DAILY #5 tablet Lisinopril [Zestril] 20 mg PO DAILY #30 tab Metoprolol Tartrate [Lopressor] 25 mg PO BID #60 tab - Follow Up Plan Condition: STABLE Disposition: HOME/ ROUTINE Instructions: Myocardial Infarction (DC), Heart Catheterization (DC), Coronary Intravascular Stent Placement (DC) Additional Instructions: Patient stable for discharge home as per hospitalist team and cardiology Patient to take following medications as prescribed: -ASA 81mg po qdaily Disp#30 -Lipitor 80mg po qhs Disp#30 -Plavix 75mg po qdaily Disp#30 -Lasix 40mg po qdaily Disp#30 -Lisinopril 20mg po qdaily Disp#30 -Lopressor 25mg po bid Disp#60 -Levaquin 500mg po qdaily Disp#5 -Nasal spray Disp#1 bottle Patient recommended to abstain from tobacco and alcohol. Patient additionally recommended to follow a low carb, low salt, low fat diet. Patient to follow up with PMD within 7 days and to follow up with Cardiology within 7 days to follow up results of MUGA scan. If symptoms persist or worsen patient to visit ED immediately. Instructions discussed in detail with patient who understands and agrees. Referrals: Aron Niño MD [Primary Care Provider] - Follow up with primary <Lani Cruz - Last Filed: 03/24/17 16:32> Provider - Provider Date of Admission: 03/22/17 07:22 Attending physician: Lani Cruz MD Primary care physician: Aron Niño MD Hospital Course - Lab Results Lab Results: Micro Results 03/22/17 09:00 Naris MRSA Culture (Admit) - Final MRSA NOT DETECTED Most Recent Lab Values WBC 7.8 10^3/ul (4.5-11.0) 03/24/17 07:00 RBC 4.19 10^6/uL (3.5-6.1) 03/24/17 07:00 Hgb 11.1 g/dL (12.0-16.0) L 03/24/17 07:00 Hct 34.3 % (36.0-48.0) L 03/24/17 07:00 MCV 81.9 fl (80.0-105.0) 03/24/17 07:00 MCH 26.5 pg (25.0-35.0) 03/24/17 07:00 MCHC 32.4 g/dl (31.0-37.0) 03/24/17 07:00 RDW 14.3 % (11.5-14.5) 03/24/17 07:00 Plt Count 242 10^3/uL (120.0-450.0) 03/24/17 07:00 MPV 10.4 fl (7.0-11.0) 03/24/17 07:00 Gran % 44.0 % (50.0-68.0) L 03/24/17 07:00 Lymph % (Auto) 38.7 % (22.0-35.0) H 03/24/17 07:00 Emanuel % (Auto) 12.3 % (1.0-6.0) H 03/24/17 07:00 Eos % (Auto) 4.6 % (1.5-5.0) 03/24/17 07:00 Baso % (Auto) 0.4 % (0.0-3.0) 03/24/17 07:00 Gran # 3.41 (1.4-6.5) 03/24/17 07:00 Lymph # 3.0 (1.2-3.4) 03/24/17 07:00 Emanuel # 1.0 (0.1-0.6) H 03/24/17 07:00 Eos # 0.4 (0.0-0.7) 03/24/17 07:00 Baso # 0.03 K/mm3 (0.0-2.0) 03/24/17 07:00 PT 11.5 SECONDS (9.4-12.5) 03/22/17 05:50 INR 1.04 (0.93-1.08) 03/22/17 05:50 APTT 26.9 Seconds (25.1-36.5) 03/22/17 05:50 Sodium 139 mmol/L (132-148) 03/24/17 07:00 Potassium 4.1 mmol/L (3.6-5.0) 03/24/17 07:00 Chloride 102 mmol/L (98-107) 03/24/17 07:00 Carbon Dioxide 30 mmol/L (21-33) 03/24/17 07:00 Anion Gap 12 (10-20) 03/24/17 07:00 BUN 15 mg/dL (7-21) 03/24/17 07:00 Creatinine 0.8 mg/dl (0.7-1.2) 03/24/17 07:00 Est GFR ( Amer) > 60 03/24/17 07:00 Est GFR (Non-Af Amer) > 60 03/24/17 07:00 POC Glucose (mg/dL) 96 mg/dL (65-110) 03/24/17 12:01 Random Glucose 100 mg/dL (70-110) 03/24/17 07:00 Hemoglobin A1c 5.0 % (4.2-6.5) 03/22/17 08:40 Calcium 9.5 mg/dL (8.4-10.5) 03/24/17 07:00 Phosphorus 4.0 mg/dL (2.5-4.5) 03/24/17 07:00 Magnesium 1.8 mg/dL (1.7-2.2) 03/24/17 07:00 Total Bilirubin 1.0 mg/dL (0.2-1.3) 03/24/17 07:00 AST 89 U/L (14-36) H D 03/24/17 07:00 ALT 33 U/L (7-56) 03/24/17 07:00 Alkaline Phosphatase 87 U/L (38-126) 03/24/17 07:00 Lactate Dehydrogenase 835 U/L (333-699) H 03/24/17 07:00 Total Creatine Kinase 266 U/L (35-230) H 03/24/17 07:00 CK-MB (CK-2) 7.2 ng/mL (0.0-3.6) H 03/24/17 07:00 CK-MB (CK-2) % 2.7 % (2.5-3.0) 03/24/17 07:00 Troponin I 5.01 ng/mL H* D 03/24/17 07:00 Total Protein 7.9 g/dL (5.8-8.3) 03/24/17 07:00 Albumin 4.0 g/dL (3.0-4.8) 03/24/17 07:00 Globulin 3.8 gm/dL 03/24/17 07:00 Albumin/Globulin Ratio 1.1 (1.1-1.8) 03/24/17 07:00 Triglycerides 108 mg/dL (35-160) 03/22/17 05:50 Cholesterol 266 mg/dL (130-200) H 03/22/17 05:50 LDL Cholesterol Direct 164 mg/dL (0-129) H 03/22/17 05:50 HDL Cholesterol 49 mg/dL (29-60) 03/22/17 05:50 Free T4 1.31 ng/dL (0.78-2.19) 03/22/17 16:50 TSH 3rd Generation 0.45 mIU/mL (0.46-4.68) L 03/22/17 08:40 Blood Type A POSITIVE 03/22/17 06:02 Blood Type Confirm A POSITIVE 03/22/17 06:58 Antibody Screen Negative 03/22/17 06:02 BBK History Checked No verified bt 03/22/17 06:02 Attending/Attestation - Attestation I have personally seen and examined this patient.: Yes I have fully participated in the care of the patient.: Yes I have reviewed all pertinent clinical information, including history, physical exam and plan: Yes Notes (Text): 03/24/17 16:31 Attending note; Patient seen and examined with resident in ICU. Patient is a 61 year old female with PMH of hypertension, asthma, gastroesophageal reflux, and rheumatoid arthritis, was brought in by the paramedics to the ED for chest pain. Found to have acute ST elevation in 2- 3 aVF. Code Heart was called. Status post RCA stent. Patient is clinically stable. Continue aspirin, Plavix. Continue beta blockers and AMRITA inhibitor. Nasal congestion; saline nasal spray started. Started on levofloxacin for URI symptoms. Rheumatoid arthritis; continue Tylenol when necessary. Avoid opiates and NSAIDs. Medications reviewed delivered to the bedside. Upon discharge the patient will follow up with PMD . Advised to follow-up with cardiology within a week. Diagnosis; Acute ST elevation GA RCA stent URI rheumatoid arthritis Chronic NSAID use
[2017-03-24] MEDS: Insulin Reg-LOW-Coverage SC SCH ×2 (07:59→11:30)
[2017-03-24 08:22] LABS: TROPONIN I 5.01 ng/mL
[2017-03-24] MEDS: levoFLOXacin 750 mg in D5W 750 MG/150 ML BAG IVPB SCH (09:20)
[2017-03-24 09:30] VITALS: BP 131/67
[2017-03-24] MEDS ORDERED: levoFLOXacin 500 MG TAB PO ONE (11:29)
[2017-03-24 13:16] VITALS: PULSE 58; RESP 20
[2017-03-24 14:03] VITALS: TEMP 98.4
--- NOTE | 2017-03-24 14:37 | PN ---
DATE: 03/24/2017 REASON FOR CONSULTATION AND FOLLOWUP: Acute ST-segment myocardial infarction, status post code ST-segment elevation myocardial infarction, status post percutaneous transluminal coronary angioplasty of right coronary artery, primary angioplasty. SUBJECTIVE: The patient is lying flat on the bed, not in apparent distress. Denies any chest pain, shortness of breath, or any palpitation to go home. OBJECTIVE/PHYSICAL EXAMINATION: As follows: GENERAL: Not in apparent distress, lying flat. VITAL SIGNS: Temperature is afebrile, heart rate is 65, and blood pressure is 114/55. HEENT: PERRLA and intact. NECK: Supple. No carotid bruits or thyromegaly. CHEST: Clear to auscultation. HEART: S1 and S2 regular. ABDOMEN: Soft. EXTREMITIES: Clubbing or cyanosis negative. LABORATORY DATA: Blood workup as follows: WBC of 7.8, hemoglobin of 11.1, hematocrit of 34.3, and platelet count of 242. Chemistry shows sodium of 139, potassium of 4.0, chloride of 102, carbon dioxide of 30, anion gap of 12, BUN of 15, and creatinine of 0.8. Troponin of 5.01. CPK of 263. IMPRESSION: Status post acute inferior wall myocardial infarction, diabetes, obesity, arthritis, hypertension, and active tobacco abuse. Status post percutaneous transluminal coronary angioplasty of right coronary artery. Yesterday, echocardiogram shows ejection fraction of 40% trace to mild mitral regurgitation, mild tricuspid regurgitation. RECOMMENDATIONS: Continue aspirin and Plavix, mandatory for one year, prefer extended period at that time. Continue Lasix 40 p.o., continue atorvastatin, continue beta-mina, and metoprolol. Continue lisinopril 20 mg daily. Emphasis made on complete cessation of smoking, weight reduction and compliance with aspirin and Plavix, big risk for subsequent heart attack and arrhythmia, which can be very devastating. Also wait for MUGA scan to assess LV function before the patient goes home. Okay to discharge with MUGA scan and we will follow with you. Thank you Dr. Cruz for providing us the opportunity in taking care of the patient, Melony Barajas. Marco A Schilling MD
--- NOTE | 2017-03-24 15:31 | CARD ---
APPROVED REPORT INDICATION MYOCARDIAL INFARCTION,STEMI,S/P [place], EVALUATE LV AND RV EF% PROCEDURE The above named patient recieved 25.2 millicuries of Tc99m tagged red blood cells intravenously. After achieving equilibrium, gated imaging of 16/frame/cycle was performed utillizing Gamma camera interfaced with a digital computer and gated device. Gated imaging was then performed in the left anterior oblique, anterior, and the left lateral projections. Findings Left Ventricle: The quality of the study is good. The left ventricle is mildly enlarged in size. The right ventricle is normal in size. Wall motion study shows good contractility of the left ventricle. RV wall motion is normal. The right atrium is dynamic. The remainder of the study is unremarkable. Impressions Normal gated wall motion of left ventricle wall. LVEF = 73%. Normal RV wall motion.
--- NOTE | 2017-03-24 23:14 | CARD ---
APPROVED REPORT EKG Measurement Heart [id number] <Conclusion> Sinus bradycardia Left axis deviation Inferior infarct, recent Abnormal ECG
== END 2017-03-24 14:56 | disposition home or self-care (01) | DRG 853 ==
LOC: ED 05:43 → CATH 06:15 → CCU 07:22
PROVIDERS: ADMIT Internal Medicine; ATTEND Internal Medicine
PROC: 027034Z Dilation of Coronary Artery, One Artery with Drug-eluting Intraluminal Device, Percutaneous Approach (ICD-10-PCS; principal; 2017-03-22)
PROC: 4A023N7 Measurement of Cardiac Sampling and Pressure, Left Heart, Percutaneous Approach (ICD-10-PCS; 2017-03-22)
PROC: B2151ZZ Fluoroscopy of Left Heart using Low Osmolar Contrast (ICD-10-PCS; 2017-03-22)
PROC: B2111ZZ Fluoroscopy of Multiple Coronary Arteries using Low Osmolar Contrast (ICD-10-PCS; 2017-03-22)
PROC: 3E033PZ Introduction of Platelet Inhibitor into Peripheral Vein, Percutaneous Approach (ICD-10-PCS; 2017-03-22)
DX: I21.19 ST elevation (STEMI) myocardial infarction involving other coronary artery of inferior wall (principal); I08.1 Rheumatic disorders of both mitral and tricuspid valves; I25.10 Atherosclerotic heart disease of native coronary artery without angina pectoris; I25.5 Ischemic cardiomyopathy; I10 Essential (primary) hypertension; M06.9 Rheumatoid arthritis, unspecified; F17.210 Nicotine dependence, cigarettes, uncomplicated; J45.909 Unspecified asthma, uncomplicated; R04.0 Epistaxis; K21.9 Gastro-esophageal reflux disease without esophagitis; J02.9 Acute pharyngitis, unspecified; M81.0 Age-related osteoporosis without current pathological fracture; E78.5 Hyperlipidemia, unspecified; E11.9 Type 2 diabetes mellitus without complications; E66.9 Obesity, unspecified; Z68.36 Body mass index [BMI] 36.0-36.9, adult; Z88.0 Allergy status to penicillin

== ENCOUNTER 2017-07-13 21:47 | Observation (INO) | payer OTHER ==
[2017-07-13 21:56] VITALS: BMI 35.4
[2017-07-13] MEDS ORDERED: Sodium Chloride 0.9% 1,000 ML IV STA (22:18)
--- NOTE | 2017-07-13 22:40 | ED PDOC ---
Arrival/HPI - General Historian: Patient - History of Present Illness Time/Duration: < week Symptom Onset: Gradual Symptom Course: Improving Quality: Pressure, Tightness Severity Level: 5 Context: Sitting, Walking, Exertion <Carlos Briones - Last Filed: 07/13/17 23:35> <Neil Hill - Last Filed: 07/14/17 04:07> - General Chief Complaint: Chest Pain Time Seen by Provider: 07/13/17 21:55 - History of Present Illness Narrative History of Present Illness (Text): 07/13/17 22:34 61AA F w/ pmhx significant for CAD s/p cardiac stent in RCA, HTN, GERD, RA, osteoporosis, presents to [facility] ED w/ Achy and pressure type left sided chest pain that started on Monday. Pain has been intermittent that resolves spontaneously. Pain is positional, and worse with physical exertion and reproducible by palpation. Pain does not radiate. Patient attempted to take her prescribed PPI and tramadol and had some slight benefit. Denies current: nausea, vomiting, diarrhea, fevers, chills, diaphoresis, heart palpitations, numbness/tingling in extremities. Of note: patient said she was lifting and moving items in the kitchen 1 day prior to chest pain PMH: stated above PSH: D&C, C-scope and EGD in 2016, Cardiac stent in RCA 2017 Socialhx: tobacco use < 10cigs/day, denies ETOH and recreational drug use ALL: PCN PMD: Dr. Niño 07/13/17 22:44 (Carlos Briones) Past Medical History - Provider Review Nursing Documentation Reviewed: Yes - Travel History Have you recently traveled outside [place] w/in the past 3 mons?: No - Infectious Disease Hx of Infectious Diseases: None - Cardiac Hx Cardiac Disorders: Yes Hx IA: Yes (03/22/17) Hx Hypertension: Yes Other/Comment: Cardiac Stent placement Mar 2017 - Pulmonary Hx Respiratory Disorders: Yes Hx Asthma: Yes - Neurological Hx Neurological Disorder: No - HEENT Hx HEENT Disorder: No - Renal Hx Renal Disorder: No - Endocrine/Metabolic Hx Endocrine Disorders: No - Hematological/Oncological Hx Blood Disorders: No - Integumentary Hx Dermatological Disorder: No - Musculoskeletal/Rheumatological Hx Musculoskeletal Disorders: No - Gastrointestinal Hx Gastrointestinal Disorders: Yes Hx Gastroesophageal Reflux: Yes - Genitourinary/Gynecological Hx Genitourinary Disorders: No - Psychiatric Hx Psychophysiologic Disorder: No Hx Substance Use: No - Surgical History Hx Dilation and Curettage: Yes <Carlos Briones - Last Filed: 07/13/17 23:35> <Neil Hill - Last Filed: 07/14/17 04:07> - Patient History Narrative Patient History: hx of CAD and cardiac stent placement in 2017 (Carlos Briones) Family/Social History - Physician Review Nursing Documentation Reviewed: Yes Family/Social History: Other (non-contributory) Smoking Status: Light Smoker < 10 Cigarettes Daily Hx Alcohol Use: No Hx Substance Use: No <Carlos Briones - Last Filed: 07/13/17 23:35> Allergies/Home Meds <Carlos Briones - Last Filed: 07/13/17 23:35> <Neil Hill - Last Filed: 07/14/17 04:07> Allergies/Adverse Reactions: Allergies Penicillins Allergy (Verified 07/13/17 21:56) ANAPHYLAXIS Home Medications: Home Meds Medication Instructions Recorded Confirmed traMADol [Ultram] 50 mg PO TID 03/22/17 07/13/17 Diclofenac [Diclofenac] 50 tab PO BID 07/13/17 07/13/17 Losartan Potassium [Losartan 25 mg PO DAILY 07/13/17 07/13/17 Potassium] Metoclopramide [Reglan] 5 mg PO TID 07/13/17 07/13/17 Metoprolol Tartrate [Lopressor] 50 mg PO HS 07/13/17 07/13/17 Omeprazole [Omeprazole] 40 mg PO DAILY 07/13/17 07/13/17 Oxybutynin Chloride [Oxybutynin 10 mg PO DAILY 07/13/17 07/13/17 Chloride ER] Review of Systems - Physician Review All systems were reviewed & negative as marked: Yes - Review of Systems Constitutional: absent: Fatigue, Fevers, Night Sweats Eyes: absent: Vision Changes ENT: absent: Hearing Changes, Tinnitus, TMJ Pain Respiratory: absent: SOB, Cough, Sputum Cardiovascular: Chest Pain. absent: Palpitations, Edema, Calf Pain, Syncope Gastrointestinal: absent: Abdominal Pain, Stool Changes, Constipation Genitourinary Female: absent: Dysuria Musculoskeletal: Arthralgias (chronic), Back Pain <AbebaCarlos - Last Filed: 07/13/17 23:35> Physical Exam Temperature: Afebrile Blood Pressure: Normal Pulse: Regular Respiratory Rate: Normal Appearance: Positive for: Well-Appearing, Non-Toxic, Comfortable Pain Distress: None Mental Status: Positive for: Alert and Oriented X 3 - Systems Exam Head: Present: Atraumatic, Normocephalic Pupils: Present: PERRL Extroacular Muscles: Present: EOMI Conjunctiva: Present: Normal Mouth: Present: Moist Mucous Membranes Respiratory/Chest: Present: Clear to Auscultation, Good Air Exchange. No: Respiratory Distress, Accessory Muscle Use Cardiovascular: Present: Normal S1, S2, Bradycardic. No: Tachycardic Abdomen: No: Tenderness, Distention, Peritoneal Signs Upper Extremity: Present: Normal Inspection, NORMAL PULSES. No: Edema Lower Extremity: Present: Normal Inspection. No: Edema, CALF TENDERNESS Neurological: Present: GCS=15, Speech Normal Skin: Present: Warm, Dry, Rashes <MerchantCarlos - Last Filed: 07/13/17 23:35> Vital Signs Pulse Resp BP Pulse Ox 07/13/17 23:00 70 15 150/87 100 07/13/17 22:13 58 L 20 144/78 100 Medical Decision Making - Lab Interpretations I have reviewed the lab results: Yes Interpretation: No sign. chg./baseline - EKG Interpretation Interpreted by ED Physician: Yes Comparison: Different from prev. EKG <Carlos Briones - Last Filed: 07/13/17 23:35> <Neil Hill - Last Filed: 07/14/17 04:07> ED Course and Treatment: 07/13/17 22:48 - EKG/CXR - CBC/CMP/Trop - IVF - Aspirin - Pain control - will follow up labs and re-evaluate 07/13/17 23:36 Trops negative; WBC WNL; Hgb 11.9 (pt baseline) Has agreed to stay in hospital for obs (Carlos Briones) 07/13/17 23:00 Melony Barajas is a 62 year old female, whose presents to the emergency department complaining of left sided chest pain.In agreement with resident note , which includes further HPI details. Patient was seen and evaluated with resident, came up with plan and treatment together. (Neil Hill) - Lab Interpretations Narrative Lab Interpretation (Text): 07/13/17 23:37 WBC WNL Hgb 11.9 (baseline) Trops Negative Chemistry- WNL (Carlos Briones) Lab Results: 07/13/17 22:48 07/13/17 22:48 Lab Results 07/13/17 22:48: PT 12.0, INR 1.05, APTT 28.7 07/13/17 22:48: Sodium 138, Potassium 4.2, Chloride 101, Carbon Dioxide 29, Anion Gap 13, BUN 23 H, Creatinine 0.7, Est GFR ( Amer) > 60, Est GFR ( Non-Af Amer) > 60, Random Glucose 94, Calcium 10.1, Total Bilirubin 0.5, AST 36 D, ALT 24, Alkaline Phosphatase 83, Troponin I < 0.01 D, Total Protein 8.3, Albumin 4.3, Globulin 4.0, Albumin/Globulin Ratio 1.1 07/13/17 22:48: WBC 7.7, RBC 4.38, Hgb 11.9 L, Hct 36.8, MCV 84.0, MCH 27.2, MCHC 32.3, RDW 13.6, Plt Count 273, MPV 10.9, Gran % 49.7 L, Lymph % (Auto) 34.5 , [place] % (Auto) 9.9 H, Eos % (Auto) 5.0, Baso % (Auto) 0.9, Gran # 3.81, Lymph # (Auto) 2.6, [place] # (Auto) 0.8 H, Eos # (Auto) 0.4, Baso # (Auto) 0.07 - RAD Interpretation Radiology Orders: 07/13/17 22:18 CHEST TWO VIEWS (PA/LAT) [RAD] Stat - EKG Interpretation EKG Interpretation (Text): 07/13/17 22:49 Sinus roger, left axis deviation, old inferior infarct (Carlos Briones) - Medication Orders Current Medication Orders: Aspirin (Ecotrin) 81 mg PO DAILY TATA Atorvastatin Calcium (Lipitor) 80 mg PO DIN TATA Clopidogrel Bisulfate (Plavix) 75 mg PO DAILY TATA Lisinopril (Zestril) 20 mg PO DAILY TATA Losartan Potassium (Cozaar) 25 mg PO DAILY TATA Metoclopramide HCl (Reglan) 5 mg PO TID TATA Metoprolol Tartrate (Lopressor) 50 mg PO HS TATA Oxybutynin Chloride (Ditropan Tab) 10 mg PO DAILY TATA Pantoprazole Sodium (Protonix Ec Tab) 40 mg PO 0600 TATA Discontinued Medications Aspirin (Aspirin Chewable) 81 mg PO STAT STA Stop: 07/13/17 22:19 Last Admin: 07/13/17 22:36 Dose: 81 mg Famotidine (Pepcid) 20 mg IVP STAT STA Stop: 07/13/17 22:21 Last Admin: 07/13/17 22:52 Dose: 20 mg IVP Administration Document 07/13/17 22:52 CNR (Rec: 07/13/17 22:52 CNR [id number]) Charges for Administration # of IVP Administrations 1 Sodium Chloride (Sodium Chloride 0.9%) 1,000 mls @ 999 mls/hr IV .Q1H1M STA Stop: 07/13/17 23:18 Last Admin: 07/13/17 22:52 Dose: 999 mls/hr eMAR Start Stop Document 07/13/17 22:52 CNR (Rec: 07/13/17 22:52 CNR [id number]) Intravenous Solution Start Date 07/13/17 Start Time 22:52 - PA / STOCKROOM COORDINATOR / Resident Statement REX has reviewed & agrees with the documentation as recorded. REX has examined the patient and agrees with the treatment plan. <Carlos Briones - Last Filed: 07/13/17 23:35> Disposition/Present on Arrival - Present on Arrival Any Indicators Present on Arrival: No History of DVT/PE: No History of Uncontrolled Diabetes: No Urinary Catheter: No History of Decub. Ulcer: No History Surgical Site Infection Following: None - Disposition Have Diagnosis and Disposition been Completed?: Yes Patient Plan: Observation <Carlos Briones - Last Filed: 07/13/17 23:35> - Present on Arrival Any Indicators Present on Arrival: No History of DVT/PE: No History of Uncontrolled Diabetes: No Urinary Catheter: No History of Decub. Ulcer: No History Surgical Site Infection Following: None - Disposition Have Diagnosis and Disposition been Completed?: Yes Disposition Time: 23:25 Patient Plan: Observation <Neil Hill - Last Filed: 07/14/17 04:07> - Disposition Diagnosis: Chest pain Disposition: HOSPITALIZED Patient Problems: Current Active Problems Problem Status Onset Chest pain Acute Condition: STABLE
[2017-07-13 23:02] LABS: BASO # 0.07 K/mm3 (0.0-2.0); BASO % 0.9 % (0.0-3.0); EOS # 0.4 (0.0-0.7); GRAN # 3.81 (1.4-6.5); GRAN % 49.7 % (50.0-68.0); HEMOGLOBIN 11.9 g/dL (12.0-16.0); LYMPH # 2.6 (1.2-3.4); LYMPH % 34.5 % (22.0-35.0); MEAN CORPUSCULAR HEMOGLOBIN 27.2 pg (25.0-35.0); MEAN CORPUSCULAR HGB CONC 32.3 g/dl (31.0-37.0); MEAN PLATELET VOLUME 10.9 fl (7.0-11.0); MONO # 0.8 (0.1-0.6); MONO % 9.9 % (1.0-6.0); RBC 4.38 10^6/uL (3.5-6.1); RED CELL DISTRIBUTION WIDTH 13.6 % (11.5-14.5); WHITE BLOOD COUNT 7.7 10^3/ul (4.5-11.0)
[2017-07-13 23:13] LABS: ALB/GLOB RATIO 1.1 (1.1-1.8); ALBUMIN 4.3 g/dL (3.0-4.8); ALT/SGPT 24 U/L (7-56); AST/SGOT 36 U/L (14-36); BLOOD UREA NITROGEN 23 mg/dL (7-21); CALCIUM 10.1 mg/dL (8.4-10.5); GFR AFRICAN-AMERICAN > 60; GFR NON-AFRICAN AMERICAN > 60
[2017-07-13 23:20] LABS: INR 1.05 (0.93-1.08); PARTIAL THROMBOPLASTIN TIME 28.7 Seconds (25.1-36.5)
[2017-07-13 23:23] LABS: TROPONIN I < 0.01 ng/mL
[2017-07-14 01:39] VITALS: RESP 18
[2017-07-14] MEDS ORDERED: Pantoprazole 40 mg EC Tab PO SCH (06:00)
[2017-07-14 06:58] VITALS: TEMP 98; O2SAT 99
[2017-07-14 08:07] LABS: TROPONIN I < 0.01 ng/mL
[2017-07-14 09:11] LABS: HDL CHOLESTEROL 40 mg/dL (29-60)
[2017-07-14 09:21] LABS: LDL CHOLESTEROL 116 mg/dL (0-129)
[2017-07-14] MEDS ORDERED: Aminophylline 25 mg/ml Inj ONE (09:30)
--- NOTE | 2017-07-14 09:55 | RAD ---
HISTORY: chest pain COMPARISON: 03/22/2017 TECHNIQUE: Chest PA and lateral FINDINGS: LUNGS: No active pulmonary disease. PLEURA: No significant pleural effusion identified. No pneumothorax apparent. CARDIOVASCULAR: Normal. OSSEOUS STRUCTURES: No significant abnormalities. VISUALIZED UPPER ABDOMEN: Normal. OTHER FINDINGS: None. IMPRESSION: No active disease.
--- NOTE | 2017-07-14 15:26 | CON ---
DATE: 07/14/2017 SERVICE: Cardiology. REASON FOR THE CONSULTATION AND FOLLOWUP: Cardiac evaluation, chest pain on coughing, history of coronary artery disease, status post inferior wall KY, status post PTCA, history of rheumatoid arthritis, osteoarthritis. BRIEF CLINICAL HISTORY: A 62 year-old female with past medical history significant for inferior wall KY on 03/22/2017, status post primary angioplasty, history of hypertension, history of rheumatoid arthritis, status post primary angioplasty on 03/22/2017, history of diabetes, obesity, active tobacco abuse, who came in with complaint of cough and chest pain on coughing. Denies any similar pain as the patient had an KY in March. PAST MEDICAL HISTORY: Significant for inferior wall KY, coronary artery disease, status post PTCA of RCA with a drug-eluting stent on 03/22/2017, hypertension, hyperlipidemia, obesity, arthritis, diabetes, intolerance to AMRITA with cardiomyopathy ischemic. Echo ejection fraction 40% at that time on KY. Previous cardiac workup as follows: The patient had inferior wall KY, status post cardiac catheterization on 03/22/2017, with blood aspiration of clot by and stenting of mid RCA was done, single vessel coronary artery disease only in the mid RCA, ejection fraction 35%, EDP was in the range of 35 at that time. Then, the patient had an echocardiography done post PTCA on the same day found ejection fraction around 40%, [id number] hypokinesis in the mid inferior wall, trace aortic regurgitation, trace to mild tricuspid regurgitation, RV systolic pressure of 34. Then, the patient had a subsequent MUGA scan was done before the patient left home, ejection fraction significantly improved dated 03/24/2017, ejection fraction came out at 73%. SOCIAL HISTORY: Ex-smoker, quit after the KY. CURRENT MEDICATIONS: The patient is taking at home tramadol 50, oxybutynin 10 mg daily, omeprazole, metoprolol tartrate 50 p.o. at bedtime, metoclopramide, losartan, lisinopril 20, diclofenac, clopidogrel, atorvastatin, and aspirin. REVIEW OF SYSTEMS: As per HPI. ALLERGIES: INTOLERANCE TO AMRITA INHIBITOR. THE PATIENT GETS COUGH FROM THE LISINOPRIL AND CHANGED TO LOSARTAN. PHYSICAL EXAMINATION: VITAL SIGNS: Temperature afebrile, heart rate 53, blood pressure 110/62. HEENT: PERRLA. Extraocular muscles intact. NECK: Supple. No carotid bruit or thyromegaly. CHEST: Clear to auscultation. HEART: S1 and S2, regular. ABDOMEN: Soft. EXTREMITIES: Clubbing and cyanosis negative. LABORATORY DATA: EKG shows sinus tachycardia at rate of 117, left axis deviation, inferior wall KY of undetermined age. Blood workup as follows: WBC 7.7, hemoglobin 11.9, hematocrit 36.8, and platelet count 273. Chemistry shows sodium 130, potassium 4.2, chloride 101, carbon dioxide 29, anion gap of 13. BUN 23, creatinine 0.7. Troponin 0.01 x2 negative. IMPRESSION: Acute inferior wall myocardial infarction in the past 03/24/2017, status post primary PTCA of right coronary artery, improved left ventricular function post PTCA, rheumatoid arthritis, obesity, diabetes, hypertension, hyperlipidemia, intolerance to AMRITA inhibitor, significant ventricular function improvement post PTCA. MUGA scan shows ejection fraction of 70%. RECOMMENDATIONS: We will start beta-mina, discontinue lisinopril because of the patient's intolerance and cough, continue atorvastatin, continue metoprolol. Though the chest pain is atypical and no evidence of KY, but given the risk factor, stress test as the patient is being scheduled on the , so we will do a stress test. Further recommendations after the stress test. We will follow with you. Most likely, the patient will be discharged after the stress test. From a cardiac point of view, cleared to be discharged, follow up as outpatient. We will again discontinue lisinopril and increase losartan to 100 mg daily because the patient's intolerance to lisinopril, AMRITA inhibitors, and intractable cough with the lisinopril. I have increased losartan to 100, discussed with the patient. We will get lipid profile, TSH, and hemoglobin A1c. Thank you Dr. Beatty for providing us the opportunity in taking care of the patient. Marco A Schilling MD
--- NOTE | 2017-07-14 17:34 | CARD ---
APPROVED REPORT EKG Measurement Heart [id number] <Conclusion> Sinus bradycardia Left axis deviation Inferior infarct, age undetermined Abnormal ECG
[2017-07-14 17:57] VITALS: BP 117/56
[2017-07-14 18:01] VITALS: PULSE 64
--- NOTE | 2017-07-14 20:51 | CARD ---
APPROVED REPORT Protocol: LEXISCAN Test Type: Lexiscan Sestamibi Stress Test Attending Physician: Dr. Marco A Tolentino Referring Physician: Dr. Della Beatty Test Indications: Chest Pain Height:5 ft 3 in Weight:200lbs Medications: Ecotrin Lipitor Plavix Zestril Cozaar Reglan Lopressor Medical History: 62 y/o female hx of chest pain Target HR: 160 bpm Resting ECG: RSR. Resting Heart Rate: 51 bpm Resting Blood Pressure: 102/70mmHg Submaximum (85%): 136 bpm PROCEDURE Pharmacologic stress testing was performed using 0.4mg per 5ml of regadenoson given intravenously over 7-10 seconds. Reversal agent aminophyline 100 mg, given intravenously for Chest Pain. POST EXERCISE Reason for Termination: Protocol completed Target HR: No Max HR: 50 bpm 46% of Maximum Predicted HR: 160 bpm Exercise duration: 00:32 min:sec, 0 Stage Exercise capacity: 1.0METs Max Blood Pressure: 102/70mmHg Blood Pressure response to exercise: normal resting BP - appropriate response Heart Rate response to exercise: appropriate Chest Pain: Yes, Dull Mid Chest Pain. Angina index: 0 Arrhythmia: No, none ST Change: No, none Deviation: 0 mm INTERPRETATION Stress EKG Conclusion: IV LEXISCAN NUCLEAR STRESS TEST DURING WHICH PATIENT FELT DULL MID CHEST PAIN. NO ST-T CHANGES. NUCLEAR SCAN REPORT PENDING. Signed by Marco A Tolentino Electronically Approved: 07/14/2017 11:55:15 EXAM: Myocardial Perfusion REST/STRESS Stress Test Type: Pharmacologic Imaging Protocol Rest Spect myocardial perfusion imaging was performed in supine position 45 minutes following the injection of 10.3 mCi of Tc-99 Myoview. At peak stress, the patient was injected intravenously with 30.8mCi of Tc-99 tetrofosmin after an infusion time of 0 minutes and 10 seconds. Gated Stress Spect was performed 65 minutes after intravenous Tc-99 Myoview injection. The images were gated to evaluate regional wall motion and calculate ventricular ejection fraction.Images were reconstructed using backfilter projection method in short horizontal and verticle long axis. Spect slices were generated. LV Perfusion The quality of the study is good. The left ventricle is normal in size. The right ventricle is unremarkable. The lung uptake is normal. The distribution of tracer reveals moderately decreased perfusion involving mid to distal anterior and apical shaw on the stress study. The remainder of the LV myocardium is unremarkable. The rest myocardial perfusion study shows no significant change. Wall Motion Wall motion study shows good contractility of the left ventricle. LVEF = 61%. Conclusion 1. Essentially normal SPECT myocardial perfusion study. 2. Fixed, anterior and apical defects are most likely due to breast attenuation. 3. Normal gated wall motion of the left ventricle.
--- NOTE | 2017-07-15 04:18 | DS ---
I saw patient only once on 07/14/2017 and I did history and physical. The patient was seen and examined at the bedside, looking comfortable, status post stress test, and cleared by the surgical oncologist for discharge. Followup with primary care physician. For more details, see my history and physical of the same date. Della Beatty MD
--- NOTE | 2017-07-17 09:12 | HP ---
CHIEF COMPLAINT: Chest pain. HISTORY OF PRESENT ILLNESS: The patient is a 62-year-old female with history of coronary artery disease, status post cardiac stenting in the right coronary artery, hypertension, GERD, rheumatoid arthritis, osteoporosis, came to the emergency room of [facility] with achy and pressure type left-sided chest pain that started on Monday. Pain has been intermittent that resolved spontaneously. Pain is positional and worse with the physical exertion, and reproducible by palpation. Pain does not radiate. The patient attempted to take her prescription PPI and tramadol with some slight benefit. Denies fevers, chills, nausea, vomiting, diarrhea, hematuria, or hematochezia. No swelling of the leg. No headache. No dizziness. PAST MEDICAL HISTORY: As above. History of D and C, section, cardiac stenting, osteoporosis. SOCIAL HISTORY: Tobacco, still smoking less than 10 cigarettes. No ethanol. No recreational drugs. ALLERGIES: PATIENT IS ALLERGIC WITH PENICILLIN. FAMILY HISTORY: Father and mother noncontributory. HOME MEDICATIONS: Tramadol, Diclofenac, losartan, Reglan, Crestor, omeprazole, oxybutynin . REVIEW OF SYSTEMS: Patient was seen and examined at the bedside late evening. Family was sitting around the bedside. No more chest pain. No fatigue, no fever, no chills, no night sweats. No vision changes. No hearing changes. No tinnitus or TMJ pain. No shortness of breath, coughing, fever, or sputum production. No palpitation. No calf pain. No syncope. No abdominal pain. PHYSICAL EXAMINATION: VITAL SIGNS: Temperature 98, pulse 64, blood pressure 170/56, respiratory rate is 18. HEENT: Head: Normocephalic, atraumatic. Eyes: PERRLA. Extraocular muscles intact. Conjunctivae clear. Nose, patent. Mucous membranes moist. NECK: Supple. No carotid bruit. No JVD or thyromegaly. CHEST: Bilaterally symmetrical. HEART: S1 and S2 positive. LUNGS: Clear to auscultation. ABDOMEN: Soft. Bowel sounds present. No organomegaly. EXTREMITIES: No edema, no cyanosis. NEUROLOGIC: The patient is awake, alert, moving all 4 extremities. No focal deficits. LABORATORY DATA: White blood cells 7.7, hemoglobin 11.9, hematocrit 36.8, platelets 273. Sodium 138, potassium 4.2, BUN 26, creatinine 0.7. Hemoglobin A1c 4.9. Calcium 10.1, lactate dehydrogenase is 293, TSH 1.44. ASSESSMENT AND PLAN: The patient is a 62-year-old lady with anemia, increased BUN, came with chest pain, went for stress test. According to Dr. Jf Snider, essentially normal SPECT myocardial perfusion study, the anterior and epical defect are most likely due to the breast attenuation, normal gated wall motion of the left ventricle. History of coronary artery disease, status post cardiac stenting. History of myocardial infarction, had drug-eluted stent on 03/22/2017. Hypertension, hypercholesterolemia, obesity, arthritis, diabetes. Ejection fraction shows 40% at that time, on myocardial infarction. Now we admitted the patient, needed 3 sets of cardiac enzymes. Seen by professor of mechanical engineering. Cleared by professor of mechanical engineering for discharge. Discharged patient. Continue same medications. Follow with Dr. Niño and professor of mechanical engineering. Della Beatty MD
== END 2017-07-14 19:16 | disposition home or self-care (01) ==
LOC: ED 21:47 → ERH 23:26 → 2RNO 07-14 01:19
PROVIDERS: ADMIT Internal Medicine; ATTEND Internal Medicine
DX: R07.9 Chest pain, unspecified (principal); D64.9 Anemia, unspecified; Z95.5 Presence of coronary angioplasty implant and graft; I25.10 Atherosclerotic heart disease of native coronary artery without angina pectoris; M19.90 Unspecified osteoarthritis, unspecified site; I10 Essential (primary) hypertension; E78.00 Pure hypercholesterolemia, unspecified; E11.9 Type 2 diabetes mellitus without complications; M06.9 Rheumatoid arthritis, unspecified; I25.5 Ischemic cardiomyopathy; I08.2 Rheumatic disorders of both aortic and tricuspid valves; K21.9 Gastro-esophageal reflux disease without esophagitis; M81.0 Age-related osteoporosis without current pathological fracture; E66.9 Obesity, unspecified; I25.2 Old myocardial infarction; Z88.0 Allergy status to penicillin; Z87.891 Personal history of nicotine dependence; Z68.37 Body mass index [BMI] 37.0-37.9, adult
CPT/HCPCS: 36415; 71046; 78452; 80053; 80061; 82550; 83036; 83615; 84443; 84484; 85025; 85610; 85730; 93005; 93017; 96374; 99285; A9502; G0378; J7040